=== PATIENT | female | born 1970 | race Two or more races ===

== ENCOUNTER 2017-11-05 15:03 | Outpatient (CLI) | payer OTHER ==
[~2017-11-05 15:03] MED LIST: AMOX1TAB12 PO; METROGEL-VAGINA70 GM VG
== END 2017-11-05 15:15 | disposition home or self-care (01) ==
LOC: MAMO-SONO 15:03
DX: Z12.31 Encounter for screening mammogram for malignant neoplasm of breast (principal); N64.59 Other signs and symptoms in breast; N64.89 Other specified disorders of breast

== ENCOUNTER 2017-11-15 11:06 | Outpatient (CLI) | payer OTHER | END 2017-11-15 16:34 | disposition home or self-care (01) | LOC: SONOGRAMA 11:06 | DX: R92.2 Inconclusive mammogram (principal) ==

== ENCOUNTER 2017-11-15 11:21 | Outpatient (CLI) | payer OTHER | END 2017-11-15 11:29 | disposition home or self-care (01) | LOC: LAB 11:21 | DX: Z00.00 Encounter for general adult medical examination without abnormal findings (principal) ==

== ENCOUNTER 2018-02-10 22:20 | Emergency (ER) | payer OTHER ==
[~2018-02-10] VITALS: Ht 165.1 cm; Wt 70.3 kg
== END 2018-02-10 23:31 | disposition home or self-care (01) ==
LOC: ER 22:20
DX: J02.8 Acute pharyngitis due to other specified organisms (principal)

== ENCOUNTER 2018-07-30 12:20 | Emergency (ER) | payer OTHER ==
[~2018-07-30] VITALS: Ht 160 cm; Wt 77.1 kg
[2018-07-30] MEDS ORDERED: OSEL75CA PO (14:35)
[2018-07-30] MEDS ORDERED: TUSSI PRES-B L120 M1 PO (14:35)
== END 2018-07-30 15:29 | disposition home or self-care (01) ==
LOC: ER 12:20
DX: B34.9 Viral infection, unspecified (principal)

== ENCOUNTER 2018-11-27 23:04 | Emergency (ER) | payer OTHER ==
[~2018-11-27] VITALS: Ht 160 cm; Wt 77.1 kg
[~2018-11-27 23:04] MED LIST changes: +OSEL75CA PO; +TUSSI PRES-B L120 M1 PO
== END 2018-11-28 00:05 | disposition home or self-care (01) ==
LOC: ER 23:04
DX: M62.830 Muscle spasm of back (principal); M54.2 Cervicalgia

== ENCOUNTER 2019-01-13 07:22 | Outpatient (CLI) | payer OTHER | END 2019-01-13 07:28 | disposition home or self-care (01) | LOC: LAB 07:22 | DX: E78.49 Other hyperlipidemia (principal); R42 Dizziness and giddiness; Z00.00 Encounter for general adult medical examination without abnormal findings ==

== ENCOUNTER 2019-01-26 13:58 | Emergency (ER) | payer OTHER ==
[~2019-01-26] VITALS: Ht 160 cm; Wt 71.7 kg
== END 2019-01-26 16:53 | disposition home or self-care (01) ==
LOC: ER 13:58
DX: N83.292 Other ovarian cyst, left side (principal); R10.2 Pelvic and perineal pain

== ENCOUNTER 2019-01-28 09:00 | Outpatient (CLI) | payer OTHER | END 2019-01-28 09:03 | disposition home or self-care (01) | LOC: MAMO-SONO 09:00 | DX: N64.4 Mastodynia (principal); Z12.31 Encounter for screening mammogram for malignant neoplasm of breast ==

== ENCOUNTER 2019-02-25 00:31 | Emergency (ER) | payer OTHER ==
[~2019-02-25] VITALS: Ht 160 cm; Wt 68.0 kg
[2019-02-25] MEDS ORDERED: URETRON D-S TAB1 TAB (00:41)
== END 2019-02-25 01:56 | disposition home or self-care (01) ==
LOC: ER 00:31
DX: N39.0 Urinary tract infection, site not specified (principal)

== ENCOUNTER 2019-04-26 15:04 | Emergency (ER) | payer OTHER ==
[~2019-04-26] VITALS: Ht 160 cm; Wt 68.5 kg
[~2019-04-26 15:04] MED LIST changes: +URETRON D-S TAB1 TAB
[2019-04-26] MEDS ORDERED: GABAPENTIN300 MG PO (15:29)
[2019-04-26] MEDS ORDERED: VALACYCLOVIR1000 MG PO (15:29)
== END 2019-04-26 15:51 | disposition home or self-care (01) ==
LOC: ER 15:04
DX: B02.9 Zoster without complications (principal)

== ENCOUNTER 2019-06-29 13:55 | Emergency (ER) | payer OTHER ==
[~2019-06-29] VITALS: Ht 160 cm; Wt 71.2 kg
[~2019-06-29 13:55] MED LIST changes: +GABAPENTIN300 MG PO; +VALACYCLOVIR1000 MG PO
[2019-06-29] MEDS ORDERED: TYLENOL325 MG (14:23)
== END 2019-06-29 16:15 | disposition home or self-care (01) ==
LOC: ER 13:55
DX: B34.9 Viral infection, unspecified (principal)

== ENCOUNTER 2019-10-16 20:15 | Emergency (ER) | payer OTHER ==
[~2019-10-16] VITALS: Ht 160 cm; Wt 74.8 kg
[~2019-10-16 20:15] MED LIST changes: +TYLENOL325 MG
[2019-10-16] MEDS ORDERED: TUSNEL LIQUID178 ML PO (22:35)
[2019-10-16] MEDS ORDERED: AMOX-CLAV 875-1 EACH PO (22:35)
== END 2019-10-16 22:53 | disposition home or self-care (01) ==
LOC: ER 20:15
DX: J03.90 Acute tonsillitis, unspecified (principal)

== ENCOUNTER 2019-11-24 14:08 | Emergency (ER) | payer OTHER ==
[~2019-11-24] VITALS: Ht 160 cm; Wt 77.1 kg
[~2019-11-24 14:08] MED LIST changes: +AMOX-CLAV 875-1 EACH PO; +TUSNEL LIQUID178 ML PO
== END 2019-11-24 14:48 | disposition home or self-care (01) ==
LOC: ER 14:08
DX: B34.9 Viral infection, unspecified (principal)

== ENCOUNTER 2019-12-18 17:25 | Emergency (ER) | payer OTHER ==
[~2019-12-18] VITALS: Ht 160 cm; Wt 74.8 kg
== END 2019-12-18 20:19 | disposition home or self-care (01) ==
LOC: ER 17:25
DX: B34.9 Viral infection, unspecified (principal)

== ENCOUNTER 2020-02-27 10:26 | Outpatient (CLI) | payer OTHER | END 2020-02-27 15:00 | disposition home or self-care (01) | LOC: LAB 10:26 | PROVIDERS: ATTEND General Practice | DX: J11.1 Influenza due to unidentified influenza virus with other respiratory manifestations (principal); R51 Headache; R07.0 Pain in throat; H70.001 Acute mastoiditis without complications, right ear; Z11.59 Encounter for screening for other viral diseases; Z20.828 Contact with and (suspected) exposure to other viral communicable diseases ==

== ENCOUNTER 2020-03-08 12:54 | Outpatient (CLI) | payer OTHER | END 2020-03-08 14:23 | disposition home or self-care (01) | LOC: OFIC 805 12:54 | PROVIDERS: ATTEND Otolaryngology | DX: R22.1 Localized swelling, mass and lump, neck (principal); H92.02 Otalgia, left ear ==

== ENCOUNTER 2020-03-09 08:01 | Outpatient (CLI) | payer OTHER | END 2020-03-09 08:09 | disposition home or self-care (01) | LOC: LAB 08:01 | PROVIDERS: ATTEND Internal Medicine Cardiovascular Disease | DX: E03.8 Other specified hypothyroidism (principal); E11.9 Type 2 diabetes mellitus without complications; I10 Essential (primary) hypertension; E78.2 Mixed hyperlipidemia; Z12.11 Encounter for screening for malignant neoplasm of colon; M81.0 Age-related osteoporosis without current pathological fracture ==

== ENCOUNTER → 2020-03-09 | Outpatient (CLI) | payer OTHER | END | disposition home or self-care (01) | LOC: MAMO-SONO 09:35 | PROVIDERS: ATTEND General Practice | DX: Z12.31 Encounter for screening mammogram for malignant neoplasm of breast (principal); R22.1 Localized swelling, mass and lump, neck; N64.4 Mastodynia ==

== ENCOUNTER 2020-03-23 22:23 | Emergency (ER) | payer OTHER ==
[~2020-03-23] VITALS: Ht 160 cm; Wt 72.6 kg
== END 2020-03-23 23:40 | disposition home or self-care (01) ==
LOC: ER 22:23
DX: N83.292 Other ovarian cyst, left side (principal); R31.29 Other microscopic hematuria; R10.2 Pelvic and perineal pain

== ENCOUNTER 2020-03-26 17:36 | Emergency (ER) | payer OTHER ==
[~2020-03-26] VITALS: Ht 160 cm; Wt 72.6 kg
[2020-03-26] MEDS ORDERED: ZINC50 M1 (17:54)
[2020-03-26] MEDS ORDERED: EMERGEN-C 500500 MG (17:54)
[2020-03-26] MEDS ORDERED: VITAMIN D310 MCG/1 M PO (17:55)
== END 2020-03-26 22:27 | disposition home or self-care (01) ==
LOC: ER 17:36
DX: U07.1 COVID-19 (principal); R06.02 Shortness of breath; R07.89 Other chest pain

== ENCOUNTER → 2020-06-22 13:00 | Outpatient (CLI) | payer OTHER ==
[~2020-06-22 13:00] MED LIST changes: +EMERGEN-C 500500 MG; +VITAMIN D310 MCG/1 M PO; +ZINC50 M1
== END | disposition home or self-care (01) ==
LOC: PPH VACUNA 13:00
DX: Z23 Encounter for immunization (principal)

== ENCOUNTER 2020-06-27 22:12 | Emergency (ER) | payer OTHER ==
[~2020-06-27] VITALS: Ht 160 cm; Wt 71.2 kg
== END 2020-06-28 00:13 | disposition home or self-care (01) ==
LOC: ER 22:12
DX: J32.0 Chronic maxillary sinusitis (principal)

== ENCOUNTER 2020-08-24 16:28 | Outpatient (CLI) | payer OTHER | END 2020-08-24 18:00 | disposition home or self-care (01) | LOC: PPH VACUNA 16:28 | DX: Z23 Encounter for immunization (principal) ==

== ENCOUNTER 2020-10-27 22:23 | Emergency (ER) | payer OTHER ==
[~2020-10-27] VITALS: Ht 160 cm; Wt 72.6 kg
== END 2020-10-28 00:41 | disposition home or self-care (01) ==
LOC: ER 22:23
DX: N39.0 Urinary tract infection, site not specified (principal); M75.52 Bursitis of left shoulder

== ENCOUNTER 2021-03-29 13:33 | Outpatient (CLI) | payer OTHER | END 2021-03-29 13:49 | disposition home or self-care (01) | LOC: MAMO-SONO 13:33 | PROVIDERS: ATTEND General Practice | DX: N64.59 Other signs and symptoms in breast (principal); Z12.31 Encounter for screening mammogram for malignant neoplasm of breast; Z87.898 Personal history of other specified conditions ==

== ENCOUNTER → 2021-05-24 08:11 | Outpatient (CLI) | payer OTHER | END | disposition home or self-care (01) | LOC: LAB 08:11 | PROVIDERS: ATTEND Internal Medicine | DX: E55.9 Vitamin D deficiency, unspecified (principal); Z13.29 Encounter for screening for other suspected endocrine disorder; Z13.220 Encounter for screening for lipoid disorders ==

== ENCOUNTER 2021-06-06 08:00 | Outpatient (CLI) | payer OTHER | END 2021-06-06 08:30 | disposition home or self-care (01) | LOC: PPH VACUNA 08:00 | PROVIDERS: ATTEND Emergency Medicine Pediatric Emergency Medicine | DX: Z23 Encounter for immunization (principal) ==

== ENCOUNTER 2021-06-29 20:51 | Emergency (ER) | payer OTHER ==
[~2021-06-29] VITALS: Ht 160 cm; Wt 77.1 kg
[2021-06-29] MEDS ORDERED: DICLOFENAC SODI75 MG PO (21:47)
[2021-06-29] MEDS ORDERED: NORFLEX100MG PO (21:47)
== END 2021-06-29 22:05 | disposition home or self-care (01) ==
LOC: ER 20:51
DX: M54.2 Cervicalgia (principal); M62.838 Other muscle spasm

== ENCOUNTER 2021-08-07 09:26 | Emergency (ER) | payer OTHER ==
[~2021-08-07] VITALS: Ht 160 cm; Wt 77.1 kg
[~2021-08-07 09:26] MED LIST changes: +DICLOFENAC SODI75 MG PO; +NORFLEX100MG PO
== END 2021-08-07 13:41 | disposition home or self-care (01) ==
LOC: ER 09:26
DX: K57.90 Diverticulosis of intestine, part unspecified, without perforation or abscess without bleeding (principal); R10.9 Unspecified abdominal pain

== ENCOUNTER 2021-09-19 17:41 | Emergency (ER) | payer OTHER ==
[~2021-09-19] VITALS: Ht 160 cm; Wt 77.1 kg
== END 2021-09-19 18:24 | disposition home or self-care (01) ==
LOC: ER 17:41
DX: B34.8 Other viral infections of unspecified site (principal); Z20.822 Contact with and (suspected) exposure to COVID-19

== ENCOUNTER 2022-01-06 14:28 | Outpatient (CLI) | payer OTHER | END 2022-01-06 14:34 | disposition home or self-care (01) | LOC: LAB 14:28 | PROVIDERS: ATTEND Emergency Medicine | DX: R05.9 Cough, unspecified (principal); R50.9 Fever, unspecified; R06.02 Shortness of breath; Z03.818 Encounter for observation for suspected exposure to other biological agents ruled out; Z20.828 Contact with and (suspected) exposure to other viral communicable diseases ==

== ENCOUNTER → 2022-04-02 | Emergency (ER) | payer OTHER ==
[~2022-04-02] VITALS: Ht 160 cm; Wt 77.1 kg
== END | disposition home or self-care (01) ==
LOC: ER 00:52
DX: U07.1 COVID-19 (principal); Z88.2 Allergy status to sulfonamides

== ENCOUNTER 2022-04-05 08:30 | Outpatient (CLI) | payer OTHER | END 2022-04-05 09:10 | disposition home or self-care (01) | LOC: ASH CLINIC 08:30 | PROVIDERS: ATTEND General Practice | DX: U07.1 COVID-19 (principal) ==

== ENCOUNTER 2022-04-14 14:11 | Outpatient (CLI) | payer OTHER | END 2022-04-14 14:24 | disposition home or self-care (01) | LOC: RAD 14:11 | PROVIDERS: ATTEND Emergency Medicine | DX: A68.9 Relapsing fever, unspecified (principal); U07.1 COVID-19 ==

== ENCOUNTER 2022-05-03 13:29 | Outpatient (CLI) | payer OTHER | END 2022-05-03 13:34 | disposition home or self-care (01) | LOC: LAB 13:29 | PROVIDERS: ATTEND General Practice | DX: J02.9 Acute pharyngitis, unspecified (principal) ==

== ENCOUNTER 2022-05-04 09:50 | Outpatient (CLI) | payer OTHER | END 2022-05-04 10:57 | disposition home or self-care (01) | LOC: LAB 09:50 | PROVIDERS: ATTEND General Practice | DX: E78.5 Hyperlipidemia, unspecified (principal); E55.9 Vitamin D deficiency, unspecified; N39.0 Urinary tract infection, site not specified; R42 Dizziness and giddiness; Z00.00 Encounter for general adult medical examination without abnormal findings ==

== ENCOUNTER 2022-05-15 14:58 | Emergency (ER) | payer OTHER ==
[~2022-05-15] VITALS: Ht 165.1 cm; Wt 81.6 kg
== END 2022-05-15 16:32 | disposition home or self-care (01) ==
LOC: ER 14:58
DX: N39.0 Urinary tract infection, site not specified (principal); Z88.2 Allergy status to sulfonamides

== ENCOUNTER 2022-05-25 22:09 | Emergency (ER) | payer OTHER ==
[~2022-05-25] VITALS: Ht 160 cm; Wt 81.6 kg
[2022-05-25] MEDS ORDERED: VITAMIN D310 MCG/1 M PO (22:19)
[2022-05-25] MEDS ORDERED: ORPHENADRINE C100 MG PO (23:07)
[2022-05-25] MEDS ORDERED: DICLOFENAC POTA50 MG PO (23:07)
== END 2022-05-26 | disposition home or self-care (01) ==
LOC: ER 22:09
DX: M62.838 Other muscle spasm (principal); Z88.2 Allergy status to sulfonamides

== ENCOUNTER 2022-05-31 08:00 | Outpatient (CLI) | payer OTHER ==
[~2022-05-31 08:00] MED LIST changes: +DICLOFENAC POTA50 MG PO; +ORPHENADRINE C100 MG PO
== END 2022-05-31 08:05 | disposition home or self-care (01) ==
LOC: PPH VACUNA 08:00
PROVIDERS: ATTEND Emergency Medicine Pediatric Emergency Medicine
DX: Z23 Encounter for immunization (principal)

== ENCOUNTER 2022-06-25 14:54 | Emergency (ER) | payer OTHER ==
[~2022-06-25] VITALS: Ht 160 cm; Wt 77.1 kg
== END 2022-06-25 18:18 | disposition home or self-care (01) ==
LOC: ER 14:54
DX: M75.52 Bursitis of left shoulder (principal); Z88.2 Allergy status to sulfonamides; Z88.1 Allergy status to other antibiotic agents

== ENCOUNTER 2022-06-29 06:50 | Outpatient (CLI) | payer OTHER | END 2022-06-29 06:53 | disposition home or self-care (01) | LOC: LAB 06:50 | PROVIDERS: ATTEND General Practice | DX: I10 Essential (primary) hypertension (principal) ==

== ENCOUNTER → 2022-06-29 | Outpatient (CLI) | payer OTHER | END | disposition home or self-care (01) | LOC: MRI 10:33 | PROVIDERS: ATTEND Orthopaedic Surgery | DX: M75.122 Complete rotator cuff tear or rupture of left shoulder, not specified as traumatic (principal) | CPT/HCPCS: 73221 ==

== ENCOUNTER 2022-09-01 13:58 | Outpatient (CLI) | payer OTHER | END 2022-09-01 13:59 | disposition home or self-care (01) | LOC: NUCLEAR 13:58 | PROVIDERS: ATTEND Internal Medicine | DX: Z13.820 Encounter for screening for osteoporosis (principal) ==

== ENCOUNTER → 2022-09-07 06:17 | Outpatient (CLI) | payer OTHER | END | disposition home or self-care (01) | LOC: LAB 06:17 | PROVIDERS: ATTEND General Practice | DX: N39.0 Urinary tract infection, site not specified (principal) ==

== ENCOUNTER → 2022-10-26 | Emergency (ER) | payer OTHER ==
[~2022-10-26] VITALS: Ht 160 cm; Wt 77.1 kg
== END | disposition home or self-care (01) ==
LOC: ER 07:58
DX: B34.9 Viral infection, unspecified (principal); Z20.822 Contact with and (suspected) exposure to COVID-19; Z88.2 Allergy status to sulfonamides

== ENCOUNTER 2022-11-17 10:08 | Outpatient (CLI) | payer OTHER | END 2022-11-17 10:12 | disposition home or self-care (01) | LOC: RAD 10:08 → LAB 10:08 | PROVIDERS: ATTEND Emergency Medicine | DX: M67.814 Other specified disorders of tendon, left shoulder (principal) ==

== ENCOUNTER 2022-12-26 13:23 | Outpatient (CLI) | payer OTHER | END 2022-12-26 13:32 | disposition home or self-care (01) | LOC: NUCLEAR 13:23 | PROVIDERS: ATTEND Internal Medicine | DX: R00.2 Palpitations (principal) ==

== ENCOUNTER 2023-01-01 06:56 | Outpatient (CLI) | payer OTHER | END 2023-01-01 07:03 | disposition home or self-care (01) | LOC: LAB 06:56 | DX: Z20.828 Contact with and (suspected) exposure to other viral communicable diseases (principal); J11.1 Influenza due to unidentified influenza virus with other respiratory manifestations; R50.9 Fever, unspecified; A49.3 Mycoplasma infection, unspecified site ==

== ENCOUNTER 2023-05-08 06:20 | Outpatient (CLI) | payer OTHER | END 2023-05-08 06:24 | disposition home or self-care (01) | LOC: LAB 06:20 | PROVIDERS: ATTEND Internal Medicine | DX: Z13.1 Encounter for screening for diabetes mellitus (principal); Z13.220 Encounter for screening for lipoid disorders; Z13.29 Encounter for screening for other suspected endocrine disorder; E55.9 Vitamin D deficiency, unspecified; M81.0 Age-related osteoporosis without current pathological fracture; Z88.2 Allergy status to sulfonamides ==

== ENCOUNTER → 2023-05-10 | Outpatient (CLI) | payer OTHER ==
[~2023-05-10] MED LIST changes: +MOTRIN IB200 M1; +TOPROL XL25 M1 PO; +[UNRECOGNIZED DRUG - OTHER]
== END | disposition home or self-care (01) ==
LOC: PPH VACUNA
PROVIDERS: ATTEND Emergency Medicine Pediatric Emergency Medicine
DX: Z23 Encounter for immunization (principal)

== ENCOUNTER 2023-05-31 14:33 | Emergency (ER) | payer OTHER ==
[~2023-05-31] VITALS: Ht 160 cm; Wt 81.6 kg
[~2023-05-31 14:33] MED LIST changes: -MOTRIN IB200 M1; -TOPROL XL25 M1 PO; -[UNRECOGNIZED DRUG - OTHER]
[2023-05-31] MEDS ORDERED: [UNRECOGNIZED DRUG - OTHER] (15:00)
[2023-05-31] MEDS ORDERED: MOTRIN IB200 M1 (15:00)
[2023-05-31 15:34] LABS: HEMATOCRIT 38.8 % (36.0-45.00); HEMOGLOBIN 12.8 g/dL (12.0-15.00); MEAN CELL VOLUME 80.3 fL (80.00-100.00); MEAN CORPUSCULAR HEMOGLOBIN 26.5 pg (27.00-32.0); PLATELET COUNT 341 K/uL (150-450); RED BLOOD COUNT 4.84 M/uL (4.00-6.00); RED CELL DISTRIBUTION WIDTH 15.3 % (11.5-14.5)
[2023-05-31 16:01] LABS: CALCIUM 9.7 mg/dL (8.5-10.1); CREATININE SERUM 0.98 mg/dL (0.55-1.02); GFR 59.37; POTASSIUM 3.51 mEq/L (3.5-5.1)
[2023-06-01] MEDS ORDERED: TOPROL XL25 M1 PO (07:46)
== END 2023-05-31 17:05 | disposition home or self-care (01) ==
LOC: ER 14:33
PROVIDERS: General Practice
DX: J06.9 Acute upper respiratory infection, unspecified (principal); Z20.822 Contact with and (suspected) exposure to COVID-19; Z88.2 Allergy status to sulfonamides

== ENCOUNTER 2023-05-31 20:37 | Emergency (ER) | payer OTHER ==
[~2023-05-31] VITALS: Ht 160 cm; Wt 81.6 kg
[~2023-05-31 20:37] MED LIST changes: +MOTRIN IB200 M1; +[UNRECOGNIZED DRUG - OTHER]
[2023-05-31 21:07] LABS: HEMATOCRIT 39.6 % (36.0-45.00); HEMOGLOBIN 13.3 g/dL (12.0-15.00); MEAN CELL VOLUME 80.3 fL (80.00-100.00); MEAN CORPUSCULAR HEMOGLOBIN 26.9 pg (27.00-32.0); MEAN CORPUSCULAR HGB CONC 33.6 g/dl (32.0-36.0); PLATELET COUNT 338 K/uL (150-450); RED BLOOD COUNT 4.94 M/uL (4.00-6.00); RED CELL DISTRIBUTION WIDTH 15.4 % (11.5-14.5)
[2023-05-31 22:32] LABS: ALBUMIN 3.8 gm/dL (3.4-5.0); BILIRUBIN TOTAL 0.39 mg/dL (0.3-1.2); CALCIUM 9.3 mg/dL (8.5-10.1); CREATININE SERUM 1.25 mg/dL (0.55-1.02); GFR 44.83; GLOBULINA 3.8 G/DL (2.4-3.5); POTASSIUM 4.31 mEq/L (3.5-5.1); TOTAL PROTEIN 7.6 gm/dL (6.4-8.2)
[2023-06-01 05:43] LABS: ALBUMIN 3.6 gm/dL (3.4-5.0); BILIRUBIN TOTAL 0.33 mg/dL (0.3-1.2); CALCIUM 9.5 mg/dL (8.5-10.1); CREATININE SERUM 0.94 mg/dL (0.55-1.02); GFR 62.29; GLOBULINA 3.8 G/DL (2.4-3.5); POTASSIUM 4.57 mEq/L (3.5-5.1); TOTAL PROTEIN 7.4 gm/dL (6.4-8.2)
[2023-06-01] MEDS ORDERED: TOPROL XL25 M1 PO (07:46)
== END 2023-06-01 10:17 | disposition home or self-care (01) ==
LOC: ER 20:37
PROVIDERS: General Practice
DX: J06.9 Acute upper respiratory infection, unspecified (principal); R00.2 Palpitations; I10 Essential (primary) hypertension; Z20.822 Contact with and (suspected) exposure to COVID-19; Z88.2 Allergy status to sulfonamides

== ENCOUNTER 2023-07-20 06:22 | Outpatient (CLI) | payer OTHER ==
[~2023-07-20 06:22] MED LIST changes: +TOPROL XL25 M1 PO
[2023-07-20 07:31] LABS: HEMATOCRIT 36.1 % (36.0-45.00); HEMOGLOBIN 12.6 g/dL (12.0-15.00); MEAN CELL VOLUME 79.7 fL (80.00-100.00); MEAN CORPUSCULAR HEMOGLOBIN 27.8 pg (27.00-32.0); MEAN CORPUSCULAR HGB CONC 34.8 g/dl (32.0-36.0); PLATELET COUNT 283 K/uL (150-450); RED BLOOD COUNT 4.53 M/uL (4.00-6.00); RED CELL DISTRIBUTION WIDTH 15.6 % (11.5-14.5)
[2023-07-20 07:35] LABS: PH,URINE 6.5 (5.0-8.0); URINE APPEARANCE Clear; URINE BILIRRUBIN Negative (NEGATIVE); URINE BLOOD Moderate; URINE COLOR Yellow; URINE GLUCOSE Negative (NEGATIVE); URINE LEUKOCYTE Negative; URINE NITRATE Negative; URINE PROTEIN Negative (NEGATIVE); URINE UROBILINOGEN 0.2 E.U./dl
[2023-07-20 07:45] LABS: URINE EPITHELIAL CELLS 1.5 uL (0.0-38.8); URINE RBC 29.1 uL (0.0-20.8)
[2023-07-20 07:55] LABS: ERYTHROCYTE SEDIMENTATION RATE 30 mm/hr
[2023-07-20 07:56] LABS: URINE WBC 1.3 uL (0.0-23.2)
[2023-07-20 08:06] LABS: ALBUMIN 3.4 gm/dL (3.4-5.0); BILIRUBIN TOTAL 0.49 mg/dL (0.3-1.2); CHOL HDL RATIO 4.9 (0-5.0); CREATININE SERUM 0.8 mg/dL (0.55-1.02); GFR 75.03; GLOBULINA 3.5 G/DL (2.4-3.5); POTASSIUM 3.92 mEq/L (3.5-5.1); TOTAL PROTEIN 6.9 gm/dL (6.4-8.2); TSH 1.91 uIU/mL (0.358-3.74)
[2023-07-20 08:07] LABS: C-REACTIVE PROTEIN 0.52 MG/DL (0.00-0.29)
== END 2023-07-20 06:23 | disposition home or self-care (01) ==
LOC: LAB 06:22
PROVIDERS: ATTEND Internal Medicine
DX: E06.9 Thyroiditis, unspecified (principal); I11.9 Hypertensive heart disease without heart failure; N20.0 Calculus of kidney; E78.9 Disorder of lipoprotein metabolism, unspecified; M19.91 Primary osteoarthritis, unspecified site; E55.9 Vitamin D deficiency, unspecified; Z88.2 Allergy status to sulfonamides

== ENCOUNTER 2023-08-10 07:11 | Outpatient (CLI) | payer OTHER ==
[2023-08-10 08:01] LABS: HEMATOCRIT 34.6 % (36.0-45.00); HEMOGLOBIN 11.6 g/dL (12.0-15.00); MEAN CELL VOLUME 80.5 fL (80.00-100.00); MEAN CORPUSCULAR HGB CONC 33.5 g/dl (32.0-36.0); PLATELET COUNT 288 K/uL (150-450); RED CELL DISTRIBUTION WIDTH 15.5 % (11.5-14.5)
[2023-08-10 09:23] LABS: MYCOPLASMA PNEUMONIAE IGM NON REACTIVE (NO REACTIVE)
== END 2023-08-10 07:13 | disposition home or self-care (01) ==
LOC: EDBD 07:11 → LAB 07:11
PROVIDERS: ATTEND Internal Medicine
DX: U07.1 COVID-19 (principal); J11.1 Influenza due to unidentified influenza virus with other respiratory manifestations

== ENCOUNTER 2023-10-02 08:44 | Outpatient (CLI) | payer OTHER ==
[2023-10-03 18:06] LABS: CYCLIC CITRULLINE PEPTIDE < 2 units (0-19)
== END 2023-10-02 08:50 | disposition home or self-care (01) ==
LOC: LAB 08:44
PROVIDERS: ATTEND Internal Medicine Hematology & Oncology
DX: M05.80 Other rheumatoid arthritis with rheumatoid factor of unspecified site (principal); M32.8 Other forms of systemic lupus erythematosus

== ENCOUNTER 2023-10-02 08:44 | Outpatient (CLI) | payer OTHER | END 2023-10-02 08:45 | disposition home or self-care (01) | LOC: RAD 08:44 | PROVIDERS: ATTEND Internal Medicine Hematology & Oncology | DX: M19.041 Primary osteoarthritis, right hand (principal); M05.80 Other rheumatoid arthritis with rheumatoid factor of unspecified site; M19.042 Primary osteoarthritis, left hand; M32.8 Other forms of systemic lupus erythematosus ==

== ENCOUNTER 2023-10-23 06:25 | Outpatient (CLI) | payer OTHER ==
[~2023-10-23 06:25] MED LIST changes: +COZAAR25 MG PO
[2023-10-23 07:02] LABS: HEMATOCRIT 36.1 % (36.0-45.00); HEMOGLOBIN 12.4 g/dL (12.0-15.00); MEAN CELL VOLUME 79.6 fL (80.00-100.00); MEAN CORPUSCULAR HEMOGLOBIN 27.3 pg (27.00-32.0); MEAN CORPUSCULAR HGB CONC 34.3 g/dl (32.0-36.0); PLATELET COUNT 273 K/uL (150-450); RED BLOOD COUNT 4.53 M/uL (4.00-6.00); RED CELL DISTRIBUTION WIDTH 14.7 % (11.5-14.5)
[2023-10-23 07:13] LABS: PH,URINE 5.5 (5.0-8.0); URINE APPEARANCE Clear; URINE BILIRRUBIN Negative (NEGATIVE); URINE BLOOD Moderate; URINE COLOR Yellow; URINE GLUCOSE Negative (NEGATIVE); URINE LEUKOCYTE Negative; URINE NITRATE Negative; URINE PROTEIN Negative (NEGATIVE); URINE UROBILINOGEN 0.2 E.U./dl
[2023-10-23 07:16] LABS: URINE BACTERIA 20.1 uL (0.0-1933); URINE EPITHELIAL CELLS 1.5 uL (0.0-38.8); URINE RBC 20.9 uL (0.0-20.8); URINE WBC 3.3 uL (0.0-23.2)
[2023-10-23 07:35] LABS: ALBUMIN 3.5 gm/dL (3.4-5.0); BILIRUBIN TOTAL 0.69 mg/dL (0.3-1.2); CALCIUM 9.1 mg/dL (8.5-10.1); CHOL HDL RATIO 5.1 (0-5.0); CREATININE SERUM 0.82 mg/dL (0.55-1.02); GFR 72.92; GLOBULINA 3.6 G/DL (2.4-3.5); TOTAL PROTEIN 7.1 gm/dL (6.4-8.2)
[2023-10-23 07:43] LABS: C-REACTIVE PROTEIN 0.89 MG/DL (0.00-0.29); T4 TOTAL 8.38 UG/DL (4.8-13.9); TSH 1.9 uIU/mL (0.358-3.74)
== END 2023-10-23 13:22 | disposition home or self-care (01) ==
LOC: LAB 06:25
PROVIDERS: ATTEND Internal Medicine
DX: N20.0 Calculus of kidney (principal); E78.9 Disorder of lipoprotein metabolism, unspecified; M19.91 Primary osteoarthritis, unspecified site; I11.9 Hypertensive heart disease without heart failure; Z13.29 Encounter for screening for other suspected endocrine disorder; R73.9 Hyperglycemia, unspecified

== ENCOUNTER 2023-12-04 06:18 | Outpatient (CLI) | payer OTHER ==
[2023-12-04 08:30] LABS: ALBUMIN 3.6 gm/dL (3.4-5.0); BILIRUBIN TOTAL 0.39 mg/dL (0.3-1.2); CALCIUM 9.2 mg/dL (8.5-10.1); CREATININE SERUM 0.72 mg/dL (0.55-1.02); GFR 84.73; GLOBULINA 3.5 G/DL (2.4-3.5); POTASSIUM 4.02 mEq/L (3.5-5.1); TOTAL PROTEIN 7.1 gm/dL (6.4-8.2)
[2023-12-04 08:32] LABS: C-REACTIVE PROTEIN 2.26 MG/DL (0.00-0.29)
== END 2023-12-04 08:28 | disposition home or self-care (01) ==
LOC: LAB 06:18
DX: M32.9 Systemic lupus erythematosus, unspecified (principal); D89.9 Disorder involving the immune mechanism, unspecified

== ENCOUNTER 2023-12-05 10:07 | Outpatient (CLI) | payer OTHER ==
[2023-12-05 10:23] LABS: PH,URINE 5.5 (5.0-8.0); URINE APPEARANCE Clear; URINE BILIRRUBIN Negative (NEGATIVE); URINE BLOOD Moderate; URINE COLOR Yellow; URINE GLUCOSE Negative (NEGATIVE); URINE LEUKOCYTE Negative; URINE NITRATE Negative; URINE PROTEIN Negative (NEGATIVE); URINE UROBILINOGEN 0.2 E.U./dl
[2023-12-05 10:24] LABS: URINE BACTERIA 22.6 uL (0.0-1933); URINE RBC 44.8 uL (0.0-20.8)
[2023-12-05 10:37] LABS: URINE EPITHELIAL CELLS 0.7 uL (0.0-38.8); URINE WBC 1.6 uL (0.0-23.2)
== END 2023-12-05 23:00 | disposition home or self-care (01) ==
LOC: LAB 10:07
PROVIDERS: ATTEND Emergency Medicine
DX: N39.0 Urinary tract infection, site not specified (principal)

== ENCOUNTER 2023-12-05 15:33 | Emergency (ER) | payer OTHER ==
[~2023-12-05] VITALS: Ht 160 cm; Wt 77.1 kg
[2023-12-05 16:28] LABS: HEMATOCRIT 34.4 % (36.0-45.00); HEMOGLOBIN 11.7 g/dL (12.0-15.00); MEAN CELL VOLUME 78.3 fL (80.00-100.00); MEAN CORPUSCULAR HEMOGLOBIN 26.7 pg (27.00-32.0); MEAN CORPUSCULAR HGB CONC 34.1 g/dl (32.0-36.0); PLATELET COUNT 315 K/uL (150-450); RED BLOOD COUNT 4.39 M/uL (4.00-6.00); RED CELL DISTRIBUTION WIDTH 15.2 % (11.5-14.5)
== END 2023-12-05 21:16 | disposition home or self-care (01) ==
LOC: ER 15:33
PROVIDERS: General Practice
DX: D27.1 Benign neoplasm of left ovary (principal); R10.2 Pelvic and perineal pain; I10 Essential (primary) hypertension; Z88.2 Allergy status to sulfonamides
CPT/HCPCS: 36415; 74177; 76830; Q9965

== ENCOUNTER 2023-12-10 11:20 | Inpatient (IN) | payer OTHER ==
[~2023-12-10] VITALS: Ht 160 cm; Wt 77.1 kg
[2023-12-10] MEDS ORDERED: FAMOTIDINE/PF 20 MG in 0.9 % SODIUM CHLORIDE 8 ML IV PUSH STA (11:27)
[2023-12-10] MEDS ORDERED: 0.9 % SODIUM CHLORIDE 1,000 ML IV SCH (11:30)
[2023-12-10] MEDS ORDERED: MORPHINE SULFATE 4 MG/ML VIAL IV ONE (11:30)
[2023-12-10] MEDS ORDERED: ONDANSETRON HCL 2 MG/ML VIAL IV ONE (11:30)
--- NOTE | 2023-12-10 11:33 | NUR ---
SE FRECIBE PTE FEMENINA DE 53 ANOS ALERTA Y ORIENTADA X3 QUEIN AL MOMENTO REFIER EDOLOR PELVICO EN LADO IZQ. SE MOINITOREAN S/V Y SE UBICA EN CAMA.
[2023-12-10 11:57] LABS: HEMATOCRIT 35.2 % (36.0-45.00); HEMOGLOBIN 12.1 g/dL (12.0-15.00); MEAN CELL VOLUME 77.8 fL (80.00-100.00); MEAN CORPUSCULAR HEMOGLOBIN 26.6 pg (27.00-32.0); MEAN CORPUSCULAR HGB CONC 34.3 g/dl (32.0-36.0); PLATELET COUNT 369 K/uL (150-450); RED BLOOD COUNT 4.53 M/uL (4.00-6.00); RED CELL DISTRIBUTION WIDTH 15.4 % (11.5-14.5)
--- NOTE | 2023-12-10 11:57 | NUR ---
SE ORIENTA PTE SOBRE TX A SEGUIR, LA MISMA REFIERE ENTENDER. SE EYAD MUESTRA DE LAB, SE CANALIZA Y SE ADMINISTRA MED ROBBI ORDEN MEDICA BAJO MEDIDAS ASEPTICAS. PEND CT
[2023-12-10 12:16] LABS: INR 1.07; PARTIAL THROMBOPLASTIN TIME 30.9 SECONDS (22.0-34.0); PROTHROMBIN TIME 11.2 SECONDS (9.0-11.5)
[2023-12-10 12:22] LABS: ALBUMIN 3.5 gm/dL (3.4-5.0); BILIRUBIN TOTAL 0.62 mg/dL (0.3-1.2); CALCIUM 9.3 mg/dL (8.5-10.1); CREATININE SERUM 0.91 mg/dL (0.55-1.02); GFR 64.67; GLOBULINA 4.7 G/DL (2.4-3.5); POTASSIUM 3.35 mEq/L (3.5-5.1); TOTAL PROTEIN 8.2 gm/dL (6.4-8.2)
[2023-12-10] MEDS ORDERED: LOSARTAN POTASSIUM 25 MG TABLET PO SCH (13:06)
[2023-12-10] MEDS ORDERED: METOPROLOL TARTRATE 25 MG TABLET PO SCH (13:06)
[2023-12-10 13:13] LABS: PH,URINE 6.5 (5.0-8.0); URINE APPEARANCE Clear; URINE BILIRRUBIN Negative (NEGATIVE); URINE BLOOD Moderate; URINE COLOR Yellow; URINE GLUCOSE Negative (NEGATIVE); URINE LEUKOCYTE Negative; URINE NITRATE Negative; URINE PROTEIN Negative (NEGATIVE); URINE UROBILINOGEN 0.2 E.U./dl
[2023-12-10 13:14] LABS: URINE BACTERIA 17.6 uL (0.0-1933)
[2023-12-10] MEDS ORDERED: MORPHINE SULFATE 4 MG/ML CARTRIDGE IV PRN (13:15)
[2023-12-10 13:27] LABS: URINE WBC 1.2 uL (0.0-23.2)
[2023-12-10] MEDS ORDERED: PIPERACILLIN/TAZOBACTAM SODIUM 3.375 GM in 0.9 % SODIUM CHLORIDE 100 ML IV SCH (18:09)
[2023-12-11] MEDS ORDERED: INSULIN LISPRO 1,000 UNIT/10 ML UNITS SUBCUTANEO PRN (08:15)
[2023-12-11] MEDS ORDERED: POTASSIUM BICARBONATE/CIT AC 25 MEQ TABLET.EFF PO ONE (08:15)
[2023-12-11] MEDS ORDERED: DEXTROSE 50 % IN WATER 0.5 G/ML DISP.SYRIN IV PRN (08:15)
[2023-12-11] MEDS ORDERED: ENOXAPARIN SODIUM 40 MG/0.4 ML SYRINGE SUBCUTANEO SCH (09:00)
[2023-12-11] MEDS ORDERED: METOPROLOL TARTRATE 25 MG TABLET PO SCH (09:00)
[2023-12-11] MEDS ORDERED: LOSARTAN POTASSIUM 25 MG TABLET PO SCH (09:00)
[2023-12-11] MEDS ORDERED: LACTOBACILLUS ACIDOPHILUS 1 CAP CAP PO SCH (09:00)
[2023-12-11 15:32] LABS: ALBUMIN 2.7 gm/dL (3.4-5.0); BILIRUBIN TOTAL 1.07 mg/dL (0.3-1.2); CALCIUM 8.2 mg/dL (8.5-10.1); CREATININE SERUM 0.68 mg/dL (0.55-1.02); GFR 90.51; GLOBULINA 3.4 G/DL (2.4-3.5); PHOSPHOROUS 2.7 mg/dL (2.5-4.9); POTASSIUM 3.9 mEq/L (3.5-5.1); TOTAL PROTEIN 6.1 gm/dL (6.4-8.2)
[2023-12-11 16:13] LABS: C-REACTIVE PROTEIN 24.2 MG/DL (0.00-0.29)
[2023-12-12] MEDS ORDERED: AA 5 %/CALCIUM/LYTES/DEXT 20 % 1,000 ML CENTRAL SCH ×2 (05:45→17:00)
[2023-12-12 07:25] LABS: HEMATOCRIT 30.2 % (36.0-45.00); MEAN CELL VOLUME 77.3 fL (80.00-100.00); MEAN CORPUSCULAR HEMOGLOBIN 25.6 pg (27.00-32.0); MEAN CORPUSCULAR HGB CONC 33.1 g/dl (32.0-36.0); PLATELET COUNT 302 K/uL (150-450); RED CELL DISTRIBUTION WIDTH 15.3 % (11.5-14.5)
[2023-12-12 08:10] LABS: ALBUMIN 2.4 gm/dL (3.4-5.0); BILIRUBIN TOTAL 0.67 mg/dL (0.3-1.2); CALCIUM 7.9 mg/dL (8.5-10.1); CREATININE SERUM 0.74 mg/dL (0.55-1.02); GFR 82.09; GLOBULINA 3.2 G/DL (2.4-3.5); MAGNESIUM 1.9 mg/dL (1.8-2.4); PHOSPHOROUS 3.4 mg/dL (2.5-4.9); POTASSIUM 3.67 mEq/L (3.5-5.1); TOTAL PROTEIN 5.6 gm/dL (6.4-8.2)
[2023-12-12 08:14] LABS: C-REACTIVE PROTEIN 21.7 MG/DL (0.00-0.29)
[2023-12-13 05:10] LABS: ALBUMIN 2.5 gm/dL (3.4-5.0); BILIRUBIN TOTAL 0.44 mg/dL (0.3-1.2); CALCIUM 8.5 mg/dL (8.5-10.1); CREATININE SERUM 0.75 mg/dL (0.55-1.02); GFR 80.83; GLOBULINA 3.5 G/DL (2.4-3.5); PHOSPHOROUS 2.7 mg/dL (2.5-4.9); POTASSIUM 4.27 mEq/L (3.5-5.1)
[2023-12-13 05:26] LABS: HEMOGLOBIN 9.6 g/dL (12.0-15.00); MEAN CELL VOLUME 77.6 fL (80.00-100.00); MEAN CORPUSCULAR HEMOGLOBIN 26.7 pg (27.00-32.0); MEAN CORPUSCULAR HGB CONC 34.4 g/dl (32.0-36.0); PLATELET COUNT 289 K/uL (150-450); RED BLOOD COUNT 3.61 M/uL (4.00-6.00); RED CELL DISTRIBUTION WIDTH 15.1 % (11.5-14.5)
[2023-12-14] MEDS ORDERED: DIATRIZOATE MEGLUMINE, SODIUM 30 ML BOTTLE PO ONE (08:15)
[2023-12-14 14:50] LABS: HEMATOCRIT 31.8 % (36.0-45.00); HEMOGLOBIN 10.6 g/dL (12.0-15.00); MEAN CELL VOLUME 76.8 fL (80.00-100.00); MEAN CORPUSCULAR HEMOGLOBIN 25.7 pg (27.00-32.0); MEAN CORPUSCULAR HGB CONC 33.5 g/dl (32.0-36.0); PLATELET COUNT 382 K/uL (150-450); RED BLOOD COUNT 4.14 M/uL (4.00-6.00); RED CELL DISTRIBUTION WIDTH 15.3 % (11.5-14.5)
[2023-12-15] MEDS ORDERED: PIPERACILLIN/TAZOBACTAM SODIUM 3.375 GM VIAL IV ONE (07:12)
[2023-12-15 07:26] LABS: HEMATOCRIT 32.1 % (36.0-45.00); HEMOGLOBIN 10.9 g/dL (12.0-15.00); MEAN CELL VOLUME 77.5 fL (80.00-100.00); MEAN CORPUSCULAR HEMOGLOBIN 26.3 pg (27.00-32.0); MEAN CORPUSCULAR HGB CONC 33.9 g/dl (32.0-36.0); PLATELET COUNT 390 K/uL (150-450); RED BLOOD COUNT 4.14 M/uL (4.00-6.00); RED CELL DISTRIBUTION WIDTH 15.3 % (11.5-14.5)
[2023-12-15 07:48] LABS: CALCIUM 8.9 mg/dL (8.5-10.1); CREATININE SERUM 0.85 mg/dL (0.55-1.02); GFR 69.96; MAGNESIUM 2.1 mg/dL (1.8-2.4); PHOSPHOROUS 3.9 mg/dL (2.5-4.9); POTASSIUM 4.08 mEq/L (3.5-5.1)
[2023-12-16] MEDS ORDERED: PIPERACILLIN/TAZOBACTAM SODIUM 3.375 GM VIAL IV ONE (08:28)
[2023-12-17 12:51] LABS: HEMATOCRIT 33.2 % (36.0-45.00); HEMOGLOBIN 11.2 g/dL (12.0-15.00); MEAN CELL VOLUME 78.5 fL (80.00-100.00); MEAN CORPUSCULAR HEMOGLOBIN 26.5 pg (27.00-32.0); MEAN CORPUSCULAR HGB CONC 33.8 g/dl (32.0-36.0); PLATELET COUNT 420 K/uL (150-450); RED BLOOD COUNT 4.23 M/uL (4.00-6.00); RED CELL DISTRIBUTION WIDTH 15.2 % (11.5-14.5)
[2023-12-17 13:18] LABS: ALBUMIN 3.3 gm/dL (3.4-5.0); ALKALINE PHOSPHATASE 75 U/L (50-136); ALT/SGPT 37 U/L (12-78); ANION GAP 6 (10.0-20.0); AST/SGOT 28 U/L (15-37); BILIRUBIN,CONJUGATED < 0.10 mg/dL (0.0-0.2); BLOOD UREA NITROGEN 8 mg/dL (7-18); BUN CREA RATIO 10 (7.0-25.0); CALCIUM 9.1 mg/dL (8.5-10.1); CARBON DIOXIDE 35 mEq/L (21-32); CHLORIDE 106 mmol/L (98-107); CHOLESTEROL 199 mg/dL (0-200); CREATININE SERUM 0.78 mg/dL (0.55-1.02); GFR 77.26; GLOBULINA 4.1 G/DL (2.4-3.5); GLUCOSE FASTING 113 mg/dL (65-100); HDL 22 mg/dl (40-60); LDL 127 mg/dl (0-130); OSMOLALITY SERUM 284 MOSM/KG (275-295); POTASSIUM 3.72 mEq/L (3.5-5.1); SODIUM 143 mmol/L (136-145); TOTAL IRON BINDING CAPACITY 367 ug/dl (250-450); TOTAL PROTEIN 7.4 gm/dL (6.4-8.2); VLDL 49 (0-39)
[2023-12-17 13:20] LABS: TRIGLYCERIDES 248 mg/dL (0-150)
[2023-12-17 13:25] LABS: INR 1.11; PARTIAL THROMBOPLASTIN TIME 32.5 SECONDS (22.0-34.0); PROTHROMBIN TIME 11.6 SECONDS (9.0-11.5)
[2023-12-17] MEDS ORDERED: GABAPENTIN 300 MG CAPSULE PO SCH (20:38)
[2023-12-18] MEDS ORDERED: PIPERACILLIN/TAZOBACTAM SODIUM 3.375 GM VIAL IV ONE (00:30)
[2023-12-18 07:57] LABS: HEMATOCRIT 32.9 % (36.0-45.00); HEMOGLOBIN 11.1 g/dL (12.0-15.00); MEAN CELL VOLUME 78.1 fL (80.00-100.00); MEAN CORPUSCULAR HEMOGLOBIN 26.3 pg (27.00-32.0); MEAN CORPUSCULAR HGB CONC 33.7 g/dl (32.0-36.0); PLATELET COUNT 379 K/uL (150-450); RED BLOOD COUNT 4.22 M/uL (4.00-6.00); RED CELL DISTRIBUTION WIDTH 15.3 % (11.5-14.5)
[2023-12-18 08:32] LABS: CREATININE SERUM 0.71 mg/dL (0.55-1.02); GFR 86.11; MAGNESIUM 2.2 mg/dL (1.8-2.4); POTASSIUM 4.75 mEq/L (3.5-5.1)
[2023-12-18] MEDS ORDERED: MIDAZOLAM HCL 2 MG/2 ML VIAL IV ONE (21:00)
[2023-12-18] MEDS ORDERED: FentaNYL CITRATE/PF 50MCG/ML 2ML VIAL IJ ONE (21:00)
[2023-12-19] MEDS ORDERED: HYOSCYAMINE SULFATE 0.125 MG TAB.SUBL SL PRN (07:15)
[2023-12-22 08:05] LABS: HEMATOCRIT 29.7 % (36.0-45.00); HEMOGLOBIN 10.1 g/dL (12.0-15.00); MEAN CELL VOLUME 77.1 fL (80.00-100.00); MEAN CORPUSCULAR HEMOGLOBIN 26.1 pg (27.00-32.0); MEAN CORPUSCULAR HGB CONC 33.9 g/dl (32.0-36.0); PLATELET COUNT 279 K/uL (150-450); RED BLOOD COUNT 3.86 M/uL (4.00-6.00); RED CELL DISTRIBUTION WIDTH 15.8 % (11.5-14.5)
[2023-12-22 08:30] LABS: BILIRUBIN TOTAL 0.6 mg/dL (0.3-1.2); CALCIUM 8.8 mg/dL (8.5-10.1); CREATININE SERUM 0.83 mg/dL (0.55-1.02); GFR 71.91; GLOBULINA 3.6 G/DL (2.4-3.5); PHOSPHOROUS 3.1 mg/dL (2.5-4.9); POTASSIUM 3.87 mEq/L (3.5-5.1); TOTAL PROTEIN 6.6 gm/dL (6.4-8.2)
[2023-12-22] MEDS ORDERED: LACTOBACILLUS ACIDOPHILUS 1 CAP CAP PO SCH (09:00)
[2023-12-22] MEDS ORDERED: HYOSCYAMINE0.125 M1 SL (12:08)
[2023-12-22] MEDS ORDERED: LOPRESSOR25 MG PO (12:08)
[2023-12-22] MEDS ORDERED: LOSARTAN POTASS25 MG PO (12:08)
[2023-12-22] MEDS ORDERED: INTESTINEX680 M1 PO (12:09)
[2023-12-22] MEDS ORDERED: GABAPENTIN300 MG PO (12:09)
[2023-12-22] MEDS ORDERED: INTEGRA PLUS C1 EACH PO (12:11)
[2023-12-22] MEDS ORDERED: AMOX-CLAV 875-1 EAC1 PO (12:11)
[2023-12-22] MEDS ORDERED: PANTOPRAZOLE SO20 MG PO (12:11)
[2023-12-22] MEDS ORDERED: TRAM1TAB98 PO (12:14)
[2023-12-22] MEDS ORDERED: COLACE100 MG PO (12:17)
== END 2023-12-22 14:51 | disposition home or self-care (01) | DRG 743 ==
LOC: ER 11:20 → SURH 13:28 → OB/GYN 13:28 → SURH 12-12 07:34
PROVIDERS: General Practice; Internal Medicine; ADMIT Obstetrics & Gynecology; ATTEND Obstetrics & Gynecology
PROC: BW21YZZ Computerized Tomography (CT Scan) of Abdomen and Pelvis using Other Contrast (ICD-10-PCS; 2023-12-10)
PROC: 3E0336Z Introduction of Nutritional Substance into Peripheral Vein, Percutaneous Approach (ICD-10-PCS; 2023-12-11)
PROC: BW21YZZ Computerized Tomography (CT Scan) of Abdomen and Pelvis using Other Contrast (ICD-10-PCS; 2023-12-14)
PROC: 0UB13ZX Excision of Left Ovary, Percutaneous Approach, Diagnostic (ICD-10-PCS; principal; 2023-12-18)
PROC: BW3GZZZ Magnetic Resonance Imaging (MRI) of Pelvic Region (ICD-10-PCS; 2023-12-19)
PROC: BW3GYZZ Magnetic Resonance Imaging (MRI) of Pelvic Region using Other Contrast (ICD-10-PCS; 2023-12-19)
DX: D27.1 Benign neoplasm of left ovary (principal); I48.91 Unspecified atrial fibrillation; R10.2 Pelvic and perineal pain; I11.9 Hypertensive heart disease without heart failure; Z20.822 Contact with and (suspected) exposure to COVID-19; Z53.09 Procedure and treatment not carried out because of other contraindication
CPT/HCPCS: 72196; 72198

== ENCOUNTER 2024-03-25 20:49 | Emergency (ER) | payer OTHER ==
[~2024-03-25] VITALS: Ht 160 cm; Wt 81.6 kg
[~2024-03-25 20:49] MED LIST changes: +AMOX-CLAV 875-1 EAC1 PO; +COLACE100 MG PO; +HYOSCYAMINE0.125 M1 SL; +INTEGRA PLUS C1 EACH PO; +INTESTINEX680 M1 PO; +LOPRESSOR25 MG PO; +LOSARTAN POTASS25 MG PO; +PANTOPRAZOLE SO20 MG PO; +TRAM1TAB98 PO
[2024-03-25] MEDS ORDERED: ELIQUIS5 MG (21:00)
[2024-03-25] MEDS ORDERED: CRESTOR10 MG PO (21:00)
[2024-03-25] MEDS ORDERED: FLECAINIDE ACET50 MG PO (21:00)
[2024-03-25 21:33] LABS: HEMATOCRIT 34.8 % (36.0-45.00); HEMOGLOBIN 11.8 g/dL (12.0-15.00); MEAN CELL VOLUME 75.9 fL (80.00-100.00); MEAN CORPUSCULAR HEMOGLOBIN 25.8 pg (27.00-32.0); PLATELET COUNT 257 K/uL (150-450); RED BLOOD COUNT 4.59 M/uL (4.00-6.00); RED CELL DISTRIBUTION WIDTH 16.3 % (11.5-14.5)
[2024-03-25 21:50] LABS: CALCIUM 8.6 mg/dL (8.5-10.1); CREATININE SERUM 1.08 mg/dL (0.55-1.02); GFR 52.87; POTASSIUM 3.53 mEq/L (3.5-5.1)
[2024-03-25] MEDS ORDERED: ACETAMINOPHEN 500 MG GEL..CAP PO ONE (22:45)
== END 2024-03-26 02:00 ==
LOC: ER 20:51
PROVIDERS: Emergency Medicine
DX: R07.89 Other chest pain (principal); I10 Essential (primary) hypertension; Z88.2 Allergy status to sulfonamides

== ENCOUNTER → 2024-05-27 06:42 | Outpatient (CLI) | payer OTHER ==
[~2024-05-27 06:42] MED LIST changes: +CRESTOR10 MG PO; +ELIQUIS5 MG; +FLECAINIDE ACET50 MG PO
[2024-05-27 07:33] LABS: HEMATOCRIT 33.8 % (36.0-45.00); HEMOGLOBIN 11.6 g/dL (12.0-15.00); MEAN CELL VOLUME 75.8 fL (80.00-100.00); MEAN CORPUSCULAR HEMOGLOBIN 25.9 pg (27.00-32.0); MEAN CORPUSCULAR HGB CONC 34.2 g/dl (32.0-36.0); PLATELET COUNT 248 K/uL (150-450); RED BLOOD COUNT 4.46 M/uL (4.00-6.00); RED CELL DISTRIBUTION WIDTH 17.9 % (11.5-14.5)
[2024-05-27 07:43] LABS: PH,URINE 5.5 (5.0-8.0); URINE APPEARANCE Clear; URINE BILIRRUBIN Negative (NEGATIVE); URINE BLOOD Moderate; URINE COLOR Yellow; URINE GLUCOSE Negative (NEGATIVE); URINE KETONE Negative (NEGATIVE); URINE LEUKOCYTE Negative; URINE NITRATE Negative; URINE PROTEIN Negative (NEGATIVE); URINE UROBILINOGEN 0.2 E.U./dl
[2024-05-27 07:44] LABS: URINE BACTERIA 7.5 uL (0.0-1933); URINE RBC 46.1 uL (0.0-20.8); URINE WBC 2.4 uL (0.0-23.2)
[2024-05-27 08:23] LABS: URINE EPITHELIAL CELLS 1.2 uL (0.0-38.8)
[2024-05-27 08:36] LABS: ALBUMIN 3.5 gm/dL (3.4-5.0); BILIRUBIN TOTAL 0.44 mg/dL (0.3-1.2); CALCIUM 8.8 mg/dL (8.5-10.1); CREATININE SERUM 0.81 mg/dL (0.55-1.02); FREE TRIODOTIRONINE 2.59 pg/ml (2.18-3.98); GFR 73.68; GLOBULINA 3.3 G/DL (2.4-3.5); POTASSIUM 4.09 mEq/L (3.5-5.1); T4 TOTAL 6.13 UG/DL (4.8-13.9); TOTAL PROTEIN 6.8 gm/dL (6.4-8.2); TSH 1.6 uIU/mL (0.358-3.74)
[2024-05-27 08:43] LABS: C-REACTIVE PROTEIN 0.65 MG/DL (0.00-0.29)
== END | disposition home or self-care (01) ==
LOC: LAB 06:42
PROVIDERS: ATTEND Internal Medicine
DX: M19.91 Primary osteoarthritis, unspecified site (principal); E55.9 Vitamin D deficiency, unspecified; I11.9 Hypertensive heart disease without heart failure; E11.9 Type 2 diabetes mellitus without complications; E78.9 Disorder of lipoprotein metabolism, unspecified; Z13.29 Encounter for screening for other suspected endocrine disorder; N20.0 Calculus of kidney; R73.9 Hyperglycemia, unspecified

== ENCOUNTER 2024-05-29 15:49 | Emergency (ER) | payer OTHER ==
[~2024-05-29] VITALS: Ht 160 cm; Wt 81.6 kg
[2024-05-29] MEDS ORDERED: KETOROLAC TROMETHAMINE 30 MG VIAL ONE (16:57)
[2024-05-29] MEDS ORDERED: TAMSULOSIN HCL 0.4 MG CAP PO ONE ×2 (16:57→17:00)
[2024-05-29] MEDS ORDERED: KETOROLAC TROMETHAMINE 30 MG VIAL IV ONE (17:00)
[2024-05-29 17:24] LABS: HEMATOCRIT 36.9 % (36.0-45.00); HEMOGLOBIN 12.3 g/dL (12.0-15.00); MEAN CELL VOLUME 77.5 fL (80.00-100.00); MEAN CORPUSCULAR HEMOGLOBIN 25.9 pg (27.00-32.0); MEAN CORPUSCULAR HGB CONC 33.5 g/dl (32.0-36.0); PLATELET COUNT 292 K/uL (150-450); RED BLOOD COUNT 4.76 M/uL (4.00-6.00); RED CELL DISTRIBUTION WIDTH 17.7 % (11.5-14.5)
[2024-05-29 17:33] LABS: URINE APPEARANCE Clear; URINE BILIRRUBIN Negative (NEGATIVE); URINE BLOOD Moderate; URINE COLOR Yellow; URINE GLUCOSE Negative (NEGATIVE); URINE KETONE Negative (NEGATIVE); URINE LEUKOCYTE Negative; URINE NITRATE Negative; URINE PROTEIN Negative (NEGATIVE); URINE UROBILINOGEN 0.2 E.U./dl
[2024-05-29 17:36] LABS: URINE BACTERIA 17.6 uL (0.0-1933); URINE RBC 90.2 uL (0.0-20.8); URINE WBC 3.7 uL (0.0-23.2)
[2024-05-29 17:44] LABS: INR 1.1; PARTIAL THROMBOPLASTIN TIME 31.1 SECONDS (22.0-34.0); PROTHROMBIN TIME 11.9 SECONDS (9.0-11.5)
[2024-05-29 17:47] LABS: URINE EPITHELIAL CELLS 1.3 uL (0.0-38.8)
[2024-05-29 17:49] LABS: ALBUMIN 4.1 gm/dL (3.4-5.0); BILIRUBIN TOTAL 0.69 mg/dL (0.3-1.2); CALCIUM 9.7 mg/dL (8.5-10.1); CREATININE SERUM 0.9 mg/dL (0.55-1.02); GFR 65.25; GLOBULINA 3.9 G/DL (2.4-3.5); POTASSIUM 3.78 mEq/L (3.5-5.1)
[2024-05-29] MEDS ORDERED: FAMOtidine 20 MG TABLET PO ONE (21:00)
== END 2024-05-29 21:35 | disposition home or self-care (01) ==
LOC: ER 15:49
PROVIDERS: Nurse Practitioner Family
DX: R31.9 Hematuria, unspecified (principal); R10.9 Unspecified abdominal pain; I10 Essential (primary) hypertension; Z88.2 Allergy status to sulfonamides

== ENCOUNTER 2024-06-04 07:17 | Outpatient (CLI) | payer OTHER ==
[2024-06-04 08:36] LABS: URINE BACTERIA 11.3 uL (0.0-1933); URINE RBC 17.2 uL (0.0-20.8)
[2024-06-04 08:58] LABS: URINE APPEARANCE CLEAR; URINE BILIRRUBIN NEGATIVE (NEGATIVE); URINE BLOOD MODERATE; URINE COLOR YELLOW; URINE EPITHELIAL CELLS 0.9 uL (0.0-38.8); URINE GLUCOSE NEGATIVE (NEGATIVE); URINE KETONE NEGATIVE (NEGATIVE); URINE LEUKOCYTE NEGATIVE; URINE NITRATE NEGATIVE; URINE PROTEIN NEGATIVE (NEGATIVE); URINE UROBILINOGEN 0.2 E.U./dl; URINE WBC 1.6 uL (0.0-23.2)
[2024-06-05] MEDS ORDERED: COD LIVER OIL1 EACH PO (10:07)
== END 2024-06-04 15:09 | disposition home or self-care (01) ==
LOC: LAB 07:17
PROVIDERS: ATTEND Internal Medicine
DX: R31.9 Hematuria, unspecified (principal)

== ENCOUNTER 2024-06-05 10:00 | Emergency (ER) | payer OTHER ==
[~2024-06-05] VITALS: Ht 160 cm; Wt 81.6 kg
[2024-06-05 10:03] VITALS: BP 165/82; O2SAT 96
[2024-06-05] MEDS ORDERED: COD LIVER OIL1 EACH PO (10:07)
[2024-06-05 10:55] LABS: HEMATOCRIT 35.5 % (36.0-45.00); HEMOGLOBIN 11.9 g/dL (12.0-15.00); MEAN CELL VOLUME 77.5 fL (80.00-100.00); MEAN CORPUSCULAR HGB CONC 33.5 g/dl (32.0-36.0); PLATELET COUNT 266 K/uL (150-450); RED BLOOD COUNT 4.58 M/uL (4.00-6.00)
[2024-06-05 11:04] LABS: ERYTHROCYTE SEDIMENTATION RATE 17 mm/hr
[2024-06-05 11:13] LABS: INR 1.01; PARTIAL THROMBOPLASTIN TIME 28.5 SECONDS (22.0-34.0)
== END 2024-06-05 14:38 | disposition home or self-care (01) ==
LOC: ER 10:00
PROVIDERS: Emergency Medicine
DX: M79.606 Pain in leg, unspecified (principal)

== ENCOUNTER 2024-06-12 09:10 | Emergency (ER) | payer OTHER ==
[~2024-06-12] VITALS: Ht 160 cm; Wt 816.9 kg
[~2024-06-12 09:10] MED LIST changes: +COD LIVER OIL1 EACH PO
[2024-06-12] MEDS ORDERED: TOPROL XL25 M1 (09:35)
[2024-06-12] MEDS ORDERED: METHYLPREDNISOLONE SOD SUCC 40 MG VIAL IV STA (09:52)
[2024-06-12] MEDS ORDERED: KETOROLAC TROMETHAMINE 15 MG VIAL IV STA (09:52)
== END 2024-06-12 11:45 | disposition home or self-care (01) ==
LOC: ER 09:12
DX: M77.01 Medial epicondylitis, right elbow (principal); Z88.2 Allergy status to sulfonamides; I10 Essential (primary) hypertension

== ENCOUNTER 2024-06-24 06:41 | Outpatient (CLI) | payer OTHER ==
[~2024-06-24 06:41] MED LIST changes: +TOPROL XL25 M1
[2024-06-24 07:50] LABS: PH,URINE 5.5 (5.0-8.0); URINE APPEARANCE Clear; URINE BILIRRUBIN Negative (NEGATIVE); URINE BLOOD Small; URINE COLOR Yellow; URINE GLUCOSE Negative (NEGATIVE); URINE KETONE Negative (NEGATIVE); URINE LEUKOCYTE Negative; URINE NITRATE Negative; URINE PROTEIN Negative (NEGATIVE); URINE UROBILINOGEN 0.2 E.U./dl
[2024-06-24 07:52] LABS: HEMATOCRIT 34.9 % (36.0-45.00); HEMOGLOBIN 11.7 g/dL (12.0-15.00); MEAN CELL VOLUME 77.2 fL (80.00-100.00); MEAN CORPUSCULAR HEMOGLOBIN 25.9 pg (27.00-32.0); MEAN CORPUSCULAR HGB CONC 33.5 g/dl (32.0-36.0); PLATELET COUNT 240 K/uL (150-450); RED BLOOD COUNT 4.53 M/uL (4.00-6.00); RED CELL DISTRIBUTION WIDTH 17.1 % (11.5-14.5)
[2024-06-24 07:53] LABS: URINE BACTERIA 20.1 uL (0.0-1933); URINE EPITHELIAL CELLS 1.9 uL (0.0-38.8); URINE RBC 28.7 uL (0.0-20.8); URINE WBC 7.8 uL (0.0-23.2)
[2024-06-24 08:00] LABS: URINE CAST 0.15 uL (0.0-1.40)
[2024-06-24 08:01] LABS: ERYTHROCYTE SEDIMENTATION RATE 16 mm/hr
[2024-06-24 08:29] LABS: ALBUMIN 3.8 gm/dL (3.4-5.0); BILIRUBIN TOTAL 0.63 mg/dL (0.3-1.2); CALCIUM 8.9 mg/dL (8.5-10.1); CREATININE SERUM 0.82 mg/dL (0.55-1.02); GFR 72.65; GLOBULINA 3.3 G/DL (2.4-3.5); POTASSIUM 4.02 mEq/L (3.5-5.1); TOTAL PROTEIN 7.1 gm/dL (6.4-8.2)
[2024-06-24 08:42] LABS: C-REACTIVE PROTEIN 0.79 MG/DL (0.00-0.29)
[2024-06-25 09:11] LABS: COMPLEMENT C3 199 mg/dL (82-167); COMPLEMENT C4 25 mg/dL (12-38)
[2024-06-25 15:07] LABS: ANTI JO 1 < 0.2 AI (0.0-0.9); ANTI SCLERODERMA 70 < 0.2 AI (0.0-0.9); CYCLIC CITRULLINE PEPTIDE < 2 units (0-19); DNA AB DOUBLE STRABDED 70 IU/mL (0-9); rnp < 0.2 AI (0.0-0.9); sjogrens ssa < 0.2 AI (0.0-0.9); sjogrens ssb 0.4 AI (0.0-0.9); smith ab < 0.2 AI (0.0-0.9)
== END 2024-06-24 06:52 | disposition home or self-care (01) ==
LOC: LAB 06:41
DX: M40.00 Postural kyphosis, site unspecified (principal); L93.0 Discoid lupus erythematosus; M32.0 Drug-induced systemic lupus erythematosus; M45.A0 Non-radiographic axial spondyloarthritis of unspecified sites in spine; L45 Papulosquamous disorders in diseases classified elsewhere; M35.1 Other overlap syndromes; M13.0 Polyarthritis, unspecified; M19.09 Primary osteoarthritis, other specified site; M15.0 Primary generalized (osteo)arthritis; M05.9 Rheumatoid arthritis with rheumatoid factor, unspecified; M06.9 Rheumatoid arthritis, unspecified; M05.00 Felty's syndrome, unspecified site; E03.9 Hypothyroidism, unspecified; E07.9 Disorder of thyroid, unspecified; E07.89 Other specified disorders of thyroid; M45.4 Ankylosing spondylitis of thoracic region; L40.59 Other psoriatic arthropathy; M54.00 Panniculitis affecting regions of neck and back, site unspecified

== ENCOUNTER 2024-07-01 12:44 | Outpatient (CLI) | payer OTHER | END 2024-07-01 12:51 | disposition home or self-care (01) | LOC: MAMO-SONO 12:44 | PROVIDERS: ATTEND Surgery | DX: N60.11 Diffuse cystic mastopathy of right breast (principal); N60.12 Diffuse cystic mastopathy of left breast ==

== ENCOUNTER 2024-07-03 07:14 | Outpatient (CLI) | payer OTHER | END 2024-07-03 07:21 | disposition home or self-care (01) | LOC: NUCLEAR 07:14 | DX: M13.0 Polyarthritis, unspecified (principal); M05.9 Rheumatoid arthritis with rheumatoid factor, unspecified ==

== ENCOUNTER 2024-07-16 15:20 | Outpatient (CLI) | payer OTHER | END 2024-07-16 15:30 | disposition home or self-care (01) | LOC: PPH VACUNA 15:20 | PROVIDERS: ATTEND Emergency Medicine Pediatric Emergency Medicine | DX: Z23 Encounter for immunization (principal) ==

== ENCOUNTER → 2024-08-10 | Emergency (ER) | payer OTHER ==
[~2024-08-10] VITALS: Ht 160 cm; Wt 81.6 kg
[~2024-08-10] MED LIST changes: +ACETAMINOPHEN 500 MG GEL..CAP PO ONE
[2024-08-10 10:12] LABS: HEMATOCRIT 36.7 % (36.0-45.00); HEMOGLOBIN 12.2 g/dL (12.0-15.00); MEAN CELL VOLUME 79.1 fL (80.00-100.00); MEAN CORPUSCULAR HEMOGLOBIN 26.3 pg (27.00-32.0); MEAN CORPUSCULAR HGB CONC 33.2 g/dl (32.0-36.0); PLATELET COUNT 254 K/uL (150-450); RED BLOOD COUNT 4.65 M/uL (4.00-6.00); RED CELL DISTRIBUTION WIDTH 16.3 % (11.5-14.5)
== END | disposition home or self-care (01) ==
LOC: ER 09:26
PROVIDERS: General Practice
DX: R53.81 Other malaise (principal); J06.9 Acute upper respiratory infection, unspecified; Z20.822 Contact with and (suspected) exposure to COVID-19; I10 Essential (primary) hypertension; Z88.2 Allergy status to sulfonamides

== ENCOUNTER 2024-08-21 10:15 | Outpatient (CLI) | payer OTHER ==
[~2024-08-21 10:15] MED LIST changes: -ACETAMINOPHEN 500 MG GEL..CAP PO ONE
[2024-08-21 10:37] LABS: HEMATOCRIT 36.3 % (36.0-45.00); HEMOGLOBIN 12.2 g/dL (12.0-15.00); MEAN CELL VOLUME 79.3 fL (80.00-100.00); MEAN CORPUSCULAR HEMOGLOBIN 26.6 pg (27.00-32.0); MEAN CORPUSCULAR HGB CONC 33.5 g/dl (32.0-36.0); PLATELET COUNT 278 K/uL (150-450); RED BLOOD COUNT 4.57 M/uL (4.00-6.00); RED CELL DISTRIBUTION WIDTH 16.1 % (11.5-14.5)
== END 2024-08-21 12:41 | disposition home or self-care (01) ==
LOC: LAB 10:15
PROVIDERS: ATTEND Internal Medicine
DX: B34.9 Viral infection, unspecified (principal)

== ENCOUNTER 2024-08-27 08:02 | Outpatient (CLI) | payer OTHER | END 2024-08-27 08:05 | disposition home or self-care (01) | LOC: RAD 08:02 | PROVIDERS: ATTEND General Practice | DX: M25.521 Pain in right elbow (principal) ==

== ENCOUNTER 2024-10-08 08:40 | Outpatient (CLI) | payer OTHER | END 2024-10-08 09:00 | disposition home or self-care (01) | LOC: SONOGRAMA 08:40 | PROVIDERS: ATTEND Obstetrics & Gynecology | DX: N63 Unspecified lump in breast (principal); N60.11 Diffuse cystic mastopathy of right breast; N60.12 Diffuse cystic mastopathy of left breast ==

== ENCOUNTER 2024-10-28 06:29 | Outpatient (CLI) | payer OTHER ==
[2024-10-28 07:34] LABS: PH,URINE 5.5 (5.0-8.0); URINE APPEARANCE Clear; URINE BILIRRUBIN Negative (NEGATIVE); URINE BLOOD Moderate; URINE COLOR Yellow; URINE GLUCOSE Negative (NEGATIVE); URINE KETONE Negative (NEGATIVE); URINE LEUKOCYTE Negative; URINE NITRATE Negative; URINE PROTEIN Negative (NEGATIVE); URINE UROBILINOGEN 0.2 E.U./dl
[2024-10-28 07:38] LABS: URINE EPITHELIAL CELLS 2.8 uL (0.0-38.8); URINE RBC 46.5 uL (0.0-20.8); URINE WBC 2.2 uL (0.0-23.2)
[2024-10-28 07:45] LABS: HEMATOCRIT 37.2 % (36.0-45.00); HEMOGLOBIN 12.4 g/dL (12.0-15.00); MEAN CELL VOLUME 80.3 fL (80.00-100.00); MEAN CORPUSCULAR HEMOGLOBIN 26.9 pg (27.00-32.0); MEAN CORPUSCULAR HGB CONC 33.5 g/dl (32.0-36.0); PLATELET COUNT 254 K/uL (150-450); RED BLOOD COUNT 4.63 M/uL (4.00-6.00); RED CELL DISTRIBUTION WIDTH 16.7 % (11.5-14.5)
[2024-10-28 08:29] LABS: ALBUMIN 3.7 gm/dL (3.4-5.0); BILIRUBIN TOTAL 0.62 mg/dL (0.3-1.2); C-REACTIVE PROTEIN 0.82 MG/DL (0.00-0.29); CALCIUM 9.2 mg/dL (8.5-10.1); CHOL HDL RATIO 5.2 (0-5.0); CREATININE SERUM 0.85 mg/dL (0.55-1.02); FREE TRIODOTIRONINE 2.88 pg/ml (2.18-3.98); GFR 69.7; GLOBULINA 3.6 G/DL (2.4-3.5); POTASSIUM 4.04 mEq/L (3.5-5.1); T4 TOTAL 6.77 UG/DL (4.8-13.9); TOTAL PROTEIN 7.3 gm/dL (6.4-8.2); TSH 1.7 uIU/mL (0.358-3.74)
== END 2024-10-28 06:43 | disposition home or self-care (01) ==
LOC: LAB 06:29
PROVIDERS: ATTEND Internal Medicine
DX: M19.91 Primary osteoarthritis, unspecified site (principal); E55.9 Vitamin D deficiency, unspecified; I11.9 Hypertensive heart disease without heart failure; E78.9 Disorder of lipoprotein metabolism, unspecified; Z13.29 Encounter for screening for other suspected endocrine disorder; N20.0 Calculus of kidney; R73.9 Hyperglycemia, unspecified

== ENCOUNTER 2024-11-21 18:31 | Emergency (ER) | payer OTHER ==
[~2024-11-21] VITALS: Ht 160 cm; Wt 81.6 kg
[2024-11-21] MEDS ORDERED: TRAMADOL HCL 50 MG TABLET PO STA (18:41)
[2024-11-21] MEDS ORDERED: KETOROLAC TROMETHAMINE 30 MG VIAL IM STA (19:04)
== END 2024-11-21 19:26 | disposition home or self-care (01) ==
LOC: ER 18:33
DX: S69.81XA Other specified injuries of right wrist, hand and finger(s), initial encounter (principal); W19.XXXA Unspecified fall, initial encounter; Y93.9 Activity, unspecified; Y92.89 Other specified places as the place of occurrence of the external cause; Y99.8 Other external cause status; M79.605 Pain in left leg; M25.531 Pain in right wrist; Z88.2 Allergy status to sulfonamides

== ENCOUNTER 2024-12-19 07:31 | Emergency (ER) | payer OTHER ==
[~2024-12-19] VITALS: Ht 160 cm; Wt 81.6 kg
[2024-12-19] MEDS ORDERED: PROTONIX20 MG (07:36)
[2024-12-19] MEDS ORDERED: PEPCID AC10 MG (07:36)
[2024-12-19] MEDS ORDERED: 0.9 % SODIUM CHLORIDE 1,000 ML IV STA (08:17)
[2024-12-19] MEDS ORDERED: FAMOTIDINE/PF 20 MG/2 ML VIAL ONE (08:21)
[2024-12-19] MEDS ORDERED: SUCRALFATE 1 G TABLET PO ONE (08:30)
[2024-12-19] MEDS ORDERED: FAMOTIDINE/PF 20 MG/2 ML VIAL IV ONE (08:30)
[2024-12-19 08:57] LABS: HEMOGLOBIN 13.8 g/dL (12.0-15.00); MEAN CELL VOLUME 80.6 fL (80.00-100.00); MEAN CORPUSCULAR HEMOGLOBIN 27.8 pg (27.00-32.0); MEAN CORPUSCULAR HGB CONC 34.5 g/dl (32.0-36.0); PLATELET COUNT 284 K/uL (150-450); RED BLOOD COUNT 4.96 M/uL (4.00-6.00); RED CELL DISTRIBUTION WIDTH 16.2 % (11.5-14.5)
[2024-12-19 10:23] LABS: PH,URINE 5.5 (5.0-8.0); URINE APPEARANCE Clear; URINE BILIRRUBIN Negative (NEGATIVE); URINE BLOOD Moderate; URINE COLOR Yellow; URINE GLUCOSE Negative (NEGATIVE); URINE KETONE Negative (NEGATIVE); URINE LEUKOCYTE Negative; URINE NITRATE Negative; URINE PROTEIN Negative (NEGATIVE); URINE UROBILINOGEN 0.2 E.U./dl
[2024-12-19 10:29] LABS: URINE BACTERIA 9.7 uL (0.0-1933); URINE RBC 45.9 uL (0.0-20.8); URINE WBC 4.5 uL (0.0-23.2)
[2024-12-19 10:38] LABS: URINE CAST 0.29 uL (0.0-1.40); URINE EPITHELIAL CELLS 0.9 uL (0.0-38.8)
[2024-12-19 10:52] LABS: ALBUMIN 3.8 gm/dL (3.4-5.0); BILIRUBIN TOTAL 0.51 mg/dL (0.3-1.2); CALCIUM 9.3 mg/dL (8.5-10.1); CREATININE SERUM 0.83 mg/dL (0.55-1.02); GFR 71.64; GLOBULINA 3.9 G/DL (2.4-3.5); POTASSIUM 4.21 mEq/L (3.5-5.1); TOTAL PROTEIN 7.7 gm/dL (6.4-8.2)
== END 2024-12-19 11:46 | disposition home or self-care (01) ==
LOC: ER 07:31
PROVIDERS: Emergency Medicine
DX: R10.13 Epigastric pain (principal); K76.0 Fatty (change of) liver, not elsewhere classified; I10 Essential (primary) hypertension; Z88.2 Allergy status to sulfonamides

== ENCOUNTER 2025-01-16 06:25 | Emergency (ER) | payer OTHER ==
[~2025-01-16] VITALS: Ht 160 cm; Wt 81.6 kg
[~2025-01-16 06:25] MED LIST changes: +PEPCID AC10 MG; +PROTONIX20 MG
[2025-01-16] MEDS ORDERED: ACETAMINOPHEN 500 MG GEL..CAP PO ONE (07:56)
[2025-01-16 08:15] LABS: HEMATOCRIT 37.2 % (36.0-45.00); HEMOGLOBIN 12.8 g/dL (12.0-15.00); MEAN CELL VOLUME 80.4 fL (80.00-100.00); MEAN CORPUSCULAR HEMOGLOBIN 27.6 pg (27.00-32.0); MEAN CORPUSCULAR HGB CONC 34.3 g/dl (32.0-36.0); PLATELET COUNT 231 K/uL (150-450); RED BLOOD COUNT 4.63 M/uL (4.00-6.00); RED CELL DISTRIBUTION WIDTH 15.1 % (11.5-14.5)
[2025-01-16 09:31] LABS: COVID-19 AG NEGATIVE (NEGATIVE)
[2025-01-16 09:32] LABS: INFLUENZA A AG NEGATIVE (NEGATIVE)
[2025-01-16] MEDS ORDERED: CEFTRIAXONE SODIUM 1,000 MG VIAL IV STA (10:10)
[2025-01-16] MEDS ORDERED: DEXAMETHASONE SODIUM PHOSPHATE 4 MG/ML VIAL IV STA (10:10)
[2025-01-16] MEDS ORDERED: DEXAMETHASONE SODIUM PHOSPHATE 4 MG/ML VIAL ONE (10:16)
[2025-01-16] MEDS ORDERED: CEFTRIAXONE SODIUM 1,000 MG VIAL ONE (10:16)
== END 2025-01-16 11:32 | disposition home or self-care (01) ==
LOC: ER 06:25
DX: J06.9 Acute upper respiratory infection, unspecified (principal); Z88.2 Allergy status to sulfonamides; J03.90 Acute tonsillitis, unspecified; Z20.822 Contact with and (suspected) exposure to COVID-19

== ENCOUNTER 2025-01-23 09:05 | Outpatient (CLI) | payer OTHER | END 2025-01-30 16:52 | disposition home or self-care (01) | LOC: SONOGRAMA 09:05 | PROVIDERS: ATTEND General Practice | DX: D31.60 Benign neoplasm of unspecified site of unspecified orbit (principal) ==

== ENCOUNTER 2025-03-02 10:51 | Outpatient (CLI) | payer OTHER ==
[2025-03-04 07:07] LABS: HEPATITIS A ANTIBODY IGG Positive (Negative); HEPATITIS B SURFACE ANTIBODY Non Reactive (.)
[2025-03-04 09:11] LABS: HEPATITIS C VIRUS ANTIBODY Non Reactive (Non Reactive)
== END 2025-03-02 10:59 | disposition home or self-care (01) ==
LOC: LAB 10:51
DX: A64 Unspecified sexually transmitted disease (principal); B19.9 Unspecified viral hepatitis without hepatic coma

== ENCOUNTER 2025-03-04 11:03 | Outpatient (CLI) | payer OTHER | END 2025-03-04 11:11 | disposition home or self-care (01) | LOC: LAB 11:03 | DX: B19.9 Unspecified viral hepatitis without hepatic coma (principal) ==

== ENCOUNTER 2025-03-18 06:07 | Outpatient (CLI) | payer OTHER ==
[2025-03-18 06:41] LABS: URINE APPEARANCE Clear; URINE BILIRRUBIN Negative (NEGATIVE); URINE BLOOD Moderate; URINE COLOR Yellow; URINE GLUCOSE Negative (NEGATIVE); URINE KETONE Negative (NEGATIVE); URINE LEUKOCYTE Negative; URINE NITRATE Negative; URINE PROTEIN Negative (NEGATIVE); URINE UROBILINOGEN 0.2 E.U./dl
[2025-03-18 06:45] LABS: URINE EPITHELIAL CELLS 1.5 uL (0.0-38.8); URINE RBC 24.4 uL (0.0-20.8); URINE WBC 3.2 uL (0.0-23.2)
[2025-03-18 06:46] LABS: URINE BACTERIA 2.3 uL (0.0-1933); URINE CAST 0.00 uL (0.0-1.40)
[2025-03-18 06:48] LABS: BASO % 1.1 % (0.1-1.2); EOS # 0.21 (0.04-0.54); EOS % 3.0 % (0.7-7.0); LYMPH # 2.13 (1.18-3.74); LYMPH % 30.6 % (19.3-53.1); MEAN PLATELET VOLUME 10.80 fl (9.4-12.4); MONO # 0.55 (0.24-0.82); MONO % 7.9 % (4.7-12.5); NEUT # 3.97 (1.56-6.13); NEUT % 57.1 % (34.0-71.1); RED CELL DISTRIBUTION WIDTH 14.5 % (11.6-14.4)
[2025-03-18 07:49] LABS: ALT/SGPT 27.0 U/L (12-78); AST/SGOT 17.0 U/L (15-37); BILIRUBIN TOTAL 0.62 mg/dL (0.3-1.2); BUN CREA RATIO 15.0 (7.0-25.0); CHOL HDL RATIO 5.6 (0-5.0); CREATININE SERUM 0.79 mg/dL (0.55-1.02); FREE TRIODOTIRONINE 2.51 pg/ml (2.18-3.98); GFR 75.56; GLOBULINA 3.2 G/DL (2.4-3.5); GLUCOSE FASTING 120.0 mg/dL (65-100); HDL 41.0 mg/dl (40-60); OSMOLALITY SERUM 284.0 MOSM/KG (275-295); T4 TOTAL 8.0 UG/DL (4.8-13.9); TSH 2.17 uIU/mL (0.358-3.74)
[2025-03-18 07:50] LABS: LDL 144.0 mg/dl (0-130); VLDL 45.0 (0-39)
== END 2025-03-18 06:09 | disposition home or self-care (01) ==
LOC: LAB 06:07
PROVIDERS: ATTEND Internal Medicine
DX: I11.9 Hypertensive heart disease without heart failure (principal); Z13.29 Encounter for screening for other suspected endocrine disorder; E78.9 Disorder of lipoprotein metabolism, unspecified; E11.9 Type 2 diabetes mellitus without complications; E55.9 Vitamin D deficiency, unspecified

== ENCOUNTER 2025-03-23 06:24 | Outpatient (CLI) | payer OTHER ==
[2025-03-23 08:00] LABS: BASO % 0.9 % (0.1-1.2); EOS # 0.17 (0.04-0.54); EOS % 2.3 % (0.7-7.0); LYMPH # 2.23 (1.18-3.74); LYMPH % 30.1 % (19.3-53.1); MEAN PLATELET VOLUME 10.80 fl (9.4-12.4); MONO # 0.65 (0.24-0.82); MONO % 8.8 % (4.7-12.5); NEUT # 4.28 (1.56-6.13); NEUT % 57.6 % (34.0-71.1); RED CELL DISTRIBUTION WIDTH 14.7 % (11.6-14.4)
[2025-03-23 08:32] LABS: INR 1.02
[2025-03-23 09:12] LABS: ALT/SGPT 24.0 U/L (12-78); AST/SGOT 18.0 U/L (15-37); BILIRUBIN TOTAL 0.6 mg/dL (0.3-1.2); BUN CREA RATIO 17.0 (7.0-25.0); CHOL HDL RATIO 6.0 (0-5.0); CREATININE SERUM 0.84 mg/dL (0.55-1.02); GFR 70.39; GLOBULINA 3.3 G/DL (2.4-3.5); GLUCOSE FASTING 110.0 mg/dL (65-100); HDL 39.0 mg/dl (40-60); LDL 152.0 mg/dl (0-130); OSMOLALITY SERUM 288.0 MOSM/KG (275-295); TSH 1.13 uIU/mL (0.358-3.74); VLDL 41.0 (0-39)
== END 2025-03-23 06:26 | disposition home or self-care (01) ==
LOC: LAB 06:24
PROVIDERS: ATTEND Internal Medicine
DX: D64.9 Anemia, unspecified (principal); R10.9 Unspecified abdominal pain; E03.9 Hypothyroidism, unspecified; E78.5 Hyperlipidemia, unspecified; E11.9 Type 2 diabetes mellitus without complications; I50.22 Chronic systolic (congestive) heart failure; Z79.01 Long term (current) use of anticoagulants

== ENCOUNTER 2025-04-02 06:58 | Emergency (ER) | payer OTHER ==
[~2025-04-02] VITALS: Ht 160 cm; Wt 86.2 kg
[2025-04-02] MEDS ORDERED: KETOROLAC TROMETHAMINE 60 MG VIAL IM STA (07:18)
[2025-04-02] MEDS ORDERED: KETOROLAC TROMETHAMINE 60 MG VIAL IM ONE (07:52)
[2025-04-02] MEDS ORDERED: KETO10TA2 PO (11:05)
== END 2025-04-02 12:20 | disposition home or self-care (01) ==
LOC: ER 06:58
DX: G89.11 Acute pain due to trauma (principal); M25.519 Pain in unspecified shoulder; I10 Essential (primary) hypertension; Z88.2 Allergy status to sulfonamides

== ENCOUNTER 2025-04-13 06:17 | Outpatient (CLI) | payer OTHER ==
[~2025-04-13 06:17] MED LIST changes: +KETO10TA2 PO
[2025-04-13 07:56] LABS: BASO % 0.9 % (0.1-1.2); EOS # 0.19 (0.04-0.54); EOS % 2.5 % (0.7-7.0); LYMPH # 2.03 (1.18-3.74); LYMPH % 27.0 % (19.3-53.1); MEAN PLATELET VOLUME 10.50 fl (9.4-12.4); MONO # 0.55 (0.24-0.82); MONO % 7.3 % (4.7-12.5); NEUT # 4.65 (1.56-6.13); NEUT % 62.0 % (34.0-71.1); RED CELL DISTRIBUTION WIDTH 14.6 % (11.6-14.4)
[2025-04-13 07:56] LABS: URINE APPEARANCE Clear; URINE BILIRRUBIN Negative (NEGATIVE); URINE BLOOD Moderate; URINE COLOR Yellow; URINE GLUCOSE Negative (NEGATIVE); URINE KETONE Negative (NEGATIVE); URINE LEUKOCYTE Negative; URINE NITRATE Negative; URINE PROTEIN Negative (NEGATIVE); URINE UROBILINOGEN 0.2 E.U./dl
[2025-04-13 07:59] LABS: URINE BACTERIA 11.9 uL (0.0-1933); URINE EPITHELIAL CELLS 6.1 uL (0.0-38.8); URINE RBC 31.0 uL (0.0-20.8); URINE WBC 6.2 uL (0.0-23.2)
[2025-04-13 08:17] LABS: URINE CAST 0.14 uL (0.0-1.40)
[2025-04-13 08:17] LABS: ERYTHROCYTE SEDIMENTATION RATE 15 mm/hr (0-30)
[2025-04-13 09:02] LABS: ALT/SGPT 26.0 U/L (12-78); AST/SGOT 21.0 U/L (15-37); BILIRUBIN TOTAL 0.6 mg/dL (0.3-1.2); BUN CREA RATIO 13.0 (7.0-25.0); CREATININE SERUM 0.85 mg/dL (0.55-1.02); GFR 69.44; GLOBULINA 3.3 G/DL (2.4-3.5); GLUCOSE FASTING 118.0 mg/dL (65-100); OSMOLALITY SERUM 287.0 MOSM/KG (275-295)
[2025-04-15 05:07] LABS: ANTI THYROID PEROXIDASE < 9 IU/mL (0-34)
[2025-04-15 09:08] LABS: COMPLEMENT C3 212 mg/dL (82-167); COMPLEMENT C4 27 mg/dL (12-38)
[2025-04-15 13:08] LABS: ANTI JO 1 < 0.2 AI (0.0-0.9); ANTI SCLERODERMA 70 < 0.2 AI (0.0-0.9); DNA AB DOUBLE STRABDED 35 IU/mL (0-9)
[2025-04-15 15:12] LABS: CYCLIC CITRULLINE PEPTIDE 6 units (0-19)
== END 2025-04-13 06:21 | disposition home or self-care (01) ==
LOC: LAB 06:17
DX: M40.00 Postural kyphosis, site unspecified (principal); L93.0 Discoid lupus erythematosus; M32.0 Drug-induced systemic lupus erythematosus; M45.A0 Non-radiographic axial spondyloarthritis of unspecified sites in spine; L45 Papulosquamous disorders in diseases classified elsewhere; M35.1 Other overlap syndromes; M13.0 Polyarthritis, unspecified; M19.09 Primary osteoarthritis, other specified site; M15.0 Primary generalized (osteo)arthritis; M05.9 Rheumatoid arthritis with rheumatoid factor, unspecified; M06.9 Rheumatoid arthritis, unspecified; M05.00 Felty's syndrome, unspecified site; E03.9 Hypothyroidism, unspecified; E07.9 Disorder of thyroid, unspecified; E07.89 Other specified disorders of thyroid; M45.4 Ankylosing spondylitis of thoracic region; L40.50 Arthropathic psoriasis, unspecified; M45.0 Ankylosing spondylitis of multiple sites in spine

== ENCOUNTER 2025-04-25 10:22 | Outpatient (CLI) | payer OTHER ==
[2025-04-25 11:14] LABS: BASO % 1.0 % (0.1-1.2); COVID-19 AG NEGATIVE (NEGATIVE); EOS # 0.25 (0.04-0.54); EOS % 3.1 % (0.7-7.0); LYMPH # 2.25 (1.18-3.74); LYMPH % 28.0 % (19.3-53.1); MEAN PLATELET VOLUME 10.40 fl (9.4-12.4); MONO # 0.53 (0.24-0.82); MONO % 6.6 % (4.7-12.5); NEUT # 4.89 (1.56-6.13); NEUT % 60.9 % (34.0-71.1); RED CELL DISTRIBUTION WIDTH 14.3 % (11.6-14.4)
[2025-04-25 12:12] LABS: MYCOPLASMA PNEUMONIAE IGM NON REACTIVE (NO REACTIVE)
== END 2025-04-25 10:27 | disposition home or self-care (01) ==
LOC: LAB 10:22
DX: Z80.7 Family history of other malignant neoplasms of lymphoid, hematopoietic and related tissues (principal)

== ENCOUNTER 2025-05-06 08:06 | Emergency (ER) | payer OTHER ==
[~2025-05-06] VITALS: Ht 160 cm; Wt 81.6 kg
[2025-05-06 08:45] LABS: BASO % 1.0 % (0.1-1.2); EOS # 0.21 (0.04-0.54); EOS % 2.7 % (0.7-7.0); LYMPH # 2.28 (1.18-3.74); LYMPH % 29.1 % (19.3-53.1); MEAN PLATELET VOLUME 10.80 fl (9.4-12.4); MONO # 0.55 (0.24-0.82); MONO % 7.0 % (4.7-12.5); NEUT # 4.70 (1.56-6.13); NEUT % 59.9 % (34.0-71.1); RED CELL DISTRIBUTION WIDTH 14.3 % (11.6-14.4)
[2025-05-06 08:59] LABS: ALT/SGPT 29.0 U/L (12-78); AST/SGOT 18.0 U/L (15-37); BILIRUBIN TOTAL 0.58 mg/dL (0.3-1.2); BUN CREA RATIO 14.0 (7.0-25.0); CREATININE SERUM 0.81 mg/dL (0.55-1.02); GFR 73.41; GLOBULINA 3.6 G/DL (2.4-3.5); GLUCOSE FASTING 137.0 mg/dL (65-100); OSMOLALITY SERUM 287.0 MOSM/KG (275-295)
[2025-05-06 09:26] LABS: URINE APPEARANCE Clear; URINE BACTERIA 7.1 uL (0.0-1933); URINE BILIRRUBIN Negative (NEGATIVE); URINE BLOOD Moderate; URINE COLOR Yellow; URINE GLUCOSE Negative (NEGATIVE); URINE KETONE Negative (NEGATIVE); URINE LEUKOCYTE Negative; URINE NITRATE Negative; URINE PROTEIN Negative (NEGATIVE); URINE RBC 17.5 uL (0.0-20.8); URINE UROBILINOGEN 0.2 E.U./dl; URINE WBC 2.7 uL (0.0-23.2)
[2025-05-06 09:54] LABS: URINE CAST 0.14 uL (0.0-1.40); URINE EPITHELIAL CELLS 0.6 uL (0.0-38.8)
[2025-05-06] MEDS ORDERED: IBUPROFEN600 MG PO (12:43)
[2025-05-06] MEDS ORDERED: MACROBID 100 M100 MG PO (12:43)
[2025-05-06] MEDS ORDERED: PYRIDIUM200 MG PO (12:43)
== END 2025-05-06 13:19 | disposition home or self-care (01) ==
LOC: ER 08:06
PROVIDERS: Preventive Medicine Public Health & General Preventive Medicine
DX: N39.0 Urinary tract infection, site not specified (principal); Z88.2 Allergy status to sulfonamides

== ENCOUNTER 2025-05-21 06:17 | Outpatient (CLI) | payer OTHER ==
[~2025-05-21 06:17] MED LIST changes: +IBUPROFEN600 MG PO; +MACROBID 100 M100 MG PO; +PYRIDIUM200 MG PO
[2025-05-21 07:15] LABS: BASO % 0.8 % (0.1-1.2); EOS # 0.24 (0.04-0.54); EOS % 3.2 % (0.7-7.0); LYMPH # 2.17 (1.18-3.74); LYMPH % 29.4 % (19.3-53.1); MEAN PLATELET VOLUME 11.20 fl (9.4-12.4); MONO # 0.64 (0.24-0.82); MONO % 8.7 % (4.7-12.5); NEUT # 4.25 (1.56-6.13); NEUT % 57.5 % (34.0-71.1); RED CELL DISTRIBUTION WIDTH 14.6 % (11.6-14.4)
[2025-05-21 07:34] LABS: INR 1.05
[2025-05-21 07:57] LABS: ALT/SGPT 27.0 U/L (12-78); AST/SGOT 22.0 U/L (15-37); BILIRUBIN TOTAL 0.68 mg/dL (0.3-1.2); BUN CREA RATIO 15.0 (7.0-25.0); CHOL HDL RATIO 5.4 (0-5.0); CREATININE SERUM 0.96 mg/dL (0.55-1.02); GFR 60.34; GLOBULINA 3.3 G/DL (2.4-3.5); GLUCOSE FASTING 127.0 mg/dL (65-100); HDL 40.0 mg/dl (40-60); LDL 131.0 mg/dl (0-130); OSMOLALITY SERUM 287.0 MOSM/KG (275-295); TSH 1.66 uIU/mL (0.358-3.74); VLDL 44.0 (0-39)
== END 2025-05-21 06:31 | disposition home or self-care (01) ==
LOC: LAB 06:17
PROVIDERS: ATTEND General Practice
DX: D64.9 Anemia, unspecified (principal); E03.9 Hypothyroidism, unspecified; E78.5 Hyperlipidemia, unspecified; E11.9 Type 2 diabetes mellitus without complications; Z79.01 Long term (current) use of anticoagulants; I50.22 Chronic systolic (congestive) heart failure

== ENCOUNTER → 2025-07-21 06:21 | Outpatient (CLI) | payer OTHER ==
[2025-07-21 07:52] LABS: BASO % 0.8 % (0.1-1.2); EOS # 0.15 (0.04-0.54); EOS % 1.7 % (0.7-7.0); LYMPH # 2.32 (1.18-3.74); LYMPH % 26.0 % (19.3-53.1); MEAN PLATELET VOLUME 11.00 fl (9.4-12.4); MONO # 0.74 (0.24-0.82); MONO % 8.3 % (4.7-12.5); NEUT # 5.61 (1.56-6.13); NEUT % 62.9 % (34.0-71.1); RED CELL DISTRIBUTION WIDTH 14.5 % (11.6-14.4)
[2025-07-21 08:08] LABS: URINE APPEARANCE Clear; URINE BILIRRUBIN Negative (NEGATIVE); URINE BLOOD Large; URINE COLOR Yellow; URINE GLUCOSE Negative (NEGATIVE); URINE KETONE Negative (NEGATIVE); URINE LEUKOCYTE Negative; URINE NITRATE Negative; URINE PROTEIN Negative (NEGATIVE); URINE UROBILINOGEN 0.2 E.U./dl
[2025-07-21 08:12] LABS: URINE EPITHELIAL CELLS 1.6 uL (0.0-38.8); URINE RBC 50.8 uL (0.0-20.8); URINE WBC 1.8 uL (0.0-23.2)
[2025-07-21 08:17] LABS: URINE BACTERIA 2.3 uL (0.0-1933); URINE CAST 0.00 uL (0.0-1.40)
[2025-07-21 08:28] LABS: ALT/SGPT 37.0 U/L (12-78); AST/SGOT 33.0 U/L (15-37); BILIRUBIN TOTAL 0.55 mg/dL (0.3-1.2); BUN CREA RATIO 17.0 (7.0-25.0); CHOL HDL RATIO 3.9 (0-5.0); CREATININE SERUM 0.89 mg/dL (0.55-1.02); FREE TRIODOTIRONINE 2.59 pg/ml (2.18-3.98); GFR 65.85; GLOBULINA 3.5 G/DL (2.4-3.5); GLUCOSE FASTING 121.0 mg/dL (65-100); HDL 42.0 mg/dl (40-60); LDL 91.0 mg/dl (0-130); OSMOLALITY SERUM 285.0 MOSM/KG (275-295); T4 TOTAL 6.98 UG/DL (4.8-13.9); TSH 2.04 uIU/mL (0.358-3.74); VLDL 28.0 (0-39)
== END | disposition home or self-care (01) ==
LOC: LAB 06:21
PROVIDERS: ATTEND Internal Medicine
DX: I11.9 Hypertensive heart disease without heart failure (principal); Z13.29 Encounter for screening for other suspected endocrine disorder; E78.9 Disorder of lipoprotein metabolism, unspecified; E55.9 Vitamin D deficiency, unspecified; M19.91 Primary osteoarthritis, unspecified site